=== PATIENT | female | born 1965 | race Caucasian/White ===

== ENCOUNTER → 2017-11-16 | Outpatient (CLI) | payer BC ==
[2017-11-16 08:40] LABS: Basophils % (A) 0 %; Eosinophils # (A) 0.3 k/uL (0-0.7); Eosinophils % (A) 4 %; HCT 43.9 % (34.0-46.0); HGB 14.4 gm/dL (11.4-16.0); Lymphocytes # (A) 1.8 k/uL (1.0-4.8); Lymphocytes % (A) 28 %; MCH 27.9 pg (25.0-35.0); MCHC 32.7 g/dL (31.0-37.0); MCV 85.2 fL (80.0-100.0); Mean Platelet Volume 6.9; Monocytes # (A) 0.5 k/uL (0-1.0); Monocytes % (A) 7 %; Neutrophils # (A) 3.7 k/uL (1.3-7.7); Neutrophils % (A) 58 %; Platelet Count 218 k/uL (150-450); RBC 5.15 m/uL (3.80-5.40); RDW 14.6 % (11.5-15.5); WBC 6.4 k/uL (3.8-10.6)
[2017-11-16 09:02] LABS: Albumin 3.9 g/dL (3.5-5.0); Calcium 9.5 mg/dL (8.4-10.2); Potassium 4.7 mmol/L (3.5-5.1); Total Bilirubin 0.5 mg/dL (0.2-1.3)
== END | disposition home or self-care (01) ==
LOC: LABWHC1 07:45
PROVIDERS: ATTEND Internal Medicine
DX: Z00.00 Encounter for general adult medical examination without abnormal findings (principal)
CPT/HCPCS: 36415; 80053; 80061; 84443; 85025

== ENCOUNTER 2018-05-26 13:21 | Inpatient (IN) | payer BC ==
[2018-05-26] MEDS ORDERED: SODIUM CHLORIDE 0.9% 1,000 ML IV STA (14:11)
[2018-05-26 14:30] LABS: Basophils % (A) 0 %; Eosinophils # (A) 0.2 k/uL (0-0.7); Eosinophils % (A) 2 %; HCT 45.6 % (34.0-46.0); HGB 15.2 gm/dL (11.4-16.0); Lymphocytes # (A) 1.3 k/uL (1.0-4.8); Lymphocytes % (A) 12 %; MCH 28.6 pg (25.0-35.0); MCHC 33.2 g/dL (31.0-37.0); MCV 85.9 fL (80.0-100.0); Mean Platelet Volume 7.1; Monocytes # (A) 0.6 k/uL (0-1.0); Monocytes % (A) 6 %; Neutrophils # (A) 8.5 k/uL (1.3-7.7); Neutrophils % (A) 79 %; Platelet Count 193 k/uL (150-450); RBC 5.31 m/uL (3.80-5.40); WBC 10.7 k/uL (3.8-10.6)
--- NOTE | 2018-05-26 14:38 | ED ---
General Adult HPI - General Chief complaint: Arrhythmia/Palpitations Stated complaint: Irregular Heart Rate Time Seen by Provider: 05/26/18 13:49 Source: patient, RN notes reviewed, old records reviewed Mode of arrival: ambulatory Limitations: no limitations - History of Present Illness Initial comments: Patient is a 52-year-old female who presents emergency department today with chief complaint of heart palpitations. Patient ports that she's had a history of A. fib. Patient states that she does take eliquis for this. Patient states she's been feeling a chest pressure and this arrhythmia for the past 6 days. She reports her had this happen for this long. Patient reports that she's had increased chest pressure and pain today. She does report feels like it makes her catch her breath. She does report history of stress and anxiety over the past week. - Related Data Home Medications Medication Instructions Recorded Confirmed Apixaban [Eliquis] 5 mg PO QAM 07/24/17 05/26/18 Losartan [Cozaar] 50 mg PO QAM 07/24/17 05/26/18 Diltiazem HCl [Cartia Xt] 120 mg PO DAILY 05/26/18 05/26/18 Magnesium 300 mg PO ONCE 05/26/18 05/26/18 Allergies Allergy/AdvReac Type Severity Reaction Status Date / Time No Known Allergies Allergy Verified 05/26/18 14:00 Review of Systems ROS Statement: Those systems with pertinent positive or pertinent negative responses have been documented in the HPI. ROS Other: All systems not noted in ROS Statement are negative. Past Medical History Past Medical History: Atrial Fibrillation, Hypertension, Sleep Apnea/CPAP/BIPAP Additional Past Medical History / Comment(s): HTN, overweight. History of Any Multi-Drug Resistant Organisms: None Reported Past Surgical History: Cholecystectomy, Hernia Repair, Hysterectomy, Uterine Ablation Additional Past Surgical History / Comment(s): UTERINE ABLATION Past Anesthesia/Blood Transfusion Reactions: No Reported Reaction Past Psychological History: Depression Smoking Status: Never smoker Past Alcohol Use History: Rare Past Drug Use History: None Reported - Past Family History Mother Family Medical History: AFIB Father Family Medical History: Cancer, CVA/TIA Additional Family Medical History / Comment(s): PROSTATE Brother(s) Family Medical History: No Reported History Son(s) Family Medical History: No Reported History General Exam - General Exam Comments Initial Comments: Anxious 52-year-old female. Limitations: no limitations General appearance: alert, in no apparent distress Head exam: Present: atraumatic, normocephalic, normal inspection Eye exam: Present: normal appearance, PERRL, EOMI. Absent: scleral icterus, conjunctival injection, periorbital swelling ENT exam: Present: normal exam, mucous membranes moist Neck exam: Present: normal inspection. Absent: tenderness, meningismus, lymphadenopathy Respiratory exam: Present: normal lung sounds bilaterally. Absent: respiratory distress, wheezes, rales, rhonchi, stridor Cardiovascular Exam: Present: regular rate, normal heart sounds. Absent: normal rhythm (Irregular, occasional PVCs.), systolic murmur, diastolic murmur, rubs, gallop, clicks GI/Abdominal exam: Present: soft, normal bowel sounds. Absent: distended, tenderness, guarding, rebound, rigid Extremities exam: Present: normal inspection, full ROM, normal capillary refill. Absent: tenderness, pedal edema, joint swelling, calf tenderness Back exam: Present: normal inspection Neurological exam: Present: alert, oriented X3, CN II-XII intact Psychiatric exam: Present: normal affect, normal mood Skin exam: Present: warm, dry, intact, normal color. Absent: rash Course Vital Signs 05/26/18 05/26/18 05/26/18 13:28 15:28 16:11 Temperature 98.2 F Pulse Rate 89 93 76 Respiratory 18 18 18 Rate Blood Pressure 145/87 164/83 155/87 O2 Sat by Pulse 95 95 95 Oximetry EKG Findings - EKG Comments: EKG Findings:: EKG performed at 1413 shows sinus rhythm with premature atrial compresses with apparent conduction. Possible left atrial enlargement. Anterior infarct age and turn. Abnormal EKG. Ventricular rate of 91 bpm. Pulse 136 most seconds. Stressors is 98 ms. QT QTc is 380/467 ms. Medical Decision Making - Medical Decision Making Patient is a 52-year-old female presents return today with chief complaint of chest pressure and pain worse today. She reports she's been having feelings of palpitations for the past week. Patient states that she has history of A. fib on L Meenakshi. At this time Patient continues to plan of a dull ache within her chest. EKG was reviewed. There is evidence of PACs. Patient ports these PACs continue to make her pain worse. Patient does appear somewhat anxious. Her cardiac enzymes are negative at this time. Chest x-ray was reviewed and negative for any acute process. The other lab work was reviewed and benign. Patient was given by mouth aspirin, will resume medications. Discussed case with Dr. Mora, whom discussed with Dr. Marie for admission. - Lab Data Result diagrams: 05/26/18 14:20 05/26/18 14:20 Lab Results 05/26/18 05/26/18 05/26/18 Range/Units 14:20 14:20 14:20 WBC 10.7 H (3.8-10.6) k/uL RBC 5.31 (3.80-5.40) m/uL Hgb 15.2 (11.4-16.0) gm/dL Hct 45.6 (34.0-46.0) % MCV 85.9 (80.0-100.0) fL MCH 28.6 (25.0-35.0) pg MCHC 33.2 (31.0-37.0) g/dL RDW 14.0 (11.5-15.5) % Plt Count 193 (150-450) k/uL Neutrophils % 79 % Lymphocytes % 12 % Monocytes % 6 % Eosinophils % 2 % Basophils % 0 % Neutrophils # 8.5 H (1.3-7.7) k/uL Lymphocytes # 1.3 (1.0-4.8) k/uL Monocytes # 0.6 (0-1.0) k/uL Eosinophils # 0.2 (0-0.7) k/uL Basophils # 0.0 (0-0.2) k/uL PT (9.0-12.0) sec INR (<1.2) APTT (22.0-30.0) sec Sodium 139 (137-145) mmol/L Potassium 4.7 (3.5-5.1) mmol/L Chloride 107 (98-107) mmol/L Carbon Dioxide 24 (22-30) mmol/L Anion Gap 8 mmol/L BUN 20 H (7-17) mg/dL Creatinine 0.93 (0.52-1.04) mg/dL Est GFR (CKD-EPI)AfAm 82 (>60 ml/min/1.73 sqM) Est GFR (CKD-EPI)NonAf 71 (>60 ml/min/1.73 sqM) Glucose 114 H (74-99) mg/dL Calcium 9.5 (8.4-10.2) mg/dL Magnesium 2.0 (1.6-2.3) mg/dL Total Bilirubin 0.8 (0.2-1.3) mg/dL AST 25 (14-36) U/L ALT 26 (9-52) U/L Alkaline Phosphatase 117 (38-126) U/L Total Creatine Kinase 23 L (30-135) U/L CK-MB (CK-2) 0.5 (0.0-2.4) ng/mL CK-MB (CK-2) Rel Index 2.2 Troponin I <0.012 (0.000-0.034) ng/mL Total Protein 7.1 (6.3-8.2) g/dL Albumin 4.2 (3.5-5.0) g/dL TSH 1.030 (0.465-4.680) mIU/L Urine Color Urine Appearance (Clear) Urine pH (5.0-8.0) Ur Specific [place] (1.001-1.035) Urine Protein (Negative) Urine Glucose (UA) (Negative) Urine Ketones (Negative) Urine Blood (Negative) Urine Nitrite (Negative) Urine Bilirubin (Negative) Urine Urobilinogen (<2.0) mg/dL Ur Leukocyte Esterase (Negative) Urine WBC (0-5) /hpf Ur Squamous Epith Cells (0-4) /hpf Urine Mucus (None) /hpf 05/26/18 05/26/18 Range/Units 15:00 15:00 WBC (3.8-10.6) k/uL RBC (3.80-5.40) m/uL Hgb (11.4-16.0) gm/dL Hct (34.0-46.0) % MCV (80.0-100.0) fL MCH (25.0-35.0) pg MCHC (31.0-37.0) g/dL RDW (11.5-15.5) % Plt Count (150-450) k/uL Neutrophils % % Lymphocytes % % Monocytes % % Eosinophils % % Basophils % % Neutrophils # (1.3-7.7) k/uL Lymphocytes # (1.0-4.8) k/uL Monocytes # (0-1.0) k/uL Eosinophils # (0-0.7) k/uL Basophils # (0-0.2) k/uL PT 10.3 (9.0-12.0) sec INR 1.0 (<1.2) APTT 28.9 (22.0-30.0) sec Sodium (137-145) mmol/L Potassium (3.5-5.1) mmol/L Chloride (98-107) mmol/L Carbon Dioxide (22-30) mmol/L Anion Gap mmol/L BUN (7-17) mg/dL Creatinine (0.52-1.04) mg/dL Est GFR (CKD-EPI)AfAm (>60 ml/min/1.73 sqM) Est GFR (CKD-EPI)NonAf (>60 ml/min/1.73 sqM) Glucose (74-99) mg/dL Calcium (8.4-10.2) mg/dL Magnesium (1.6-2.3) mg/dL Total Bilirubin (0.2-1.3) mg/dL AST (14-36) U/L ALT (9-52) U/L Alkaline Phosphatase (38-126) U/L Total Creatine Kinase (30-135) U/L CK-MB (CK-2) (0.0-2.4) ng/mL CK-MB (CK-2) Rel Index Troponin I (0.000-0.034) ng/mL Total Protein (6.3-8.2) g/dL Albumin (3.5-5.0) g/dL TSH (0.465-4.680) mIU/L Urine Color Yellow Urine Appearance Cloudy H (Clear) Urine pH 6.0 (5.0-8.0) Ur Specific [place] 1.021 (1.001-1.035) Urine Protein 1+ H (Negative) Urine Glucose (UA) Negative (Negative) Urine Ketones Trace H (Negative) Urine Blood Negative (Negative) Urine Nitrite Negative (Negative) Urine Bilirubin Negative (Negative) Urine Urobilinogen <2.0 (<2.0) mg/dL Ur Leukocyte Esterase Negative (Negative) Urine WBC 4 (0-5) /hpf Ur Squamous Epith Cells 17 H (0-4) /hpf Urine Mucus Occasional H (None) /hpf - Radiology Data Radiology results: report reviewed Chest x-ray was negative for any acute process. Disposition Clinical Impression: Chest pain, PAC (premature atrial contraction) Disposition: ADMITTED IP TO THIS HOSP Condition: Stable Is patient prescribed a controlled substance at d/c from ED?: No Referrals: Ulises Pérez MD [Primary Care Provider] - 1-2 days Time of Disposition: 17:11
[2018-05-26 14:43] LABS: Albumin 4.2 g/dL (3.5-5.0); Calcium 9.5 mg/dL (8.4-10.2); Creatine Kinase 23 U/L (30-135); Potassium 4.7 mmol/L (3.5-5.1); Total Bilirubin 0.8 mg/dL (0.2-1.3); Total Protein 7.1 g/dL (6.3-8.2)
[2018-05-26 14:45] LABS: Partial Thromboplastin Time 28.9 sec (22.0-30.0); Prothrombin Time 10.3 sec (9.0-12.0)
[2018-05-26 14:56] LABS: Creatine Kinase MB 0.5 ng/mL (0.0-2.4); Troponin I <0.012 ng/mL (0.000-0.034)
--- NOTE | 2018-05-26 14:58 | XR ---
EXAMINATION TYPE: XR chest 2V DATE OF EXAM: 05/26/2018 COMPARISON: 06/07/2014 HISTORY: Irregular heartbeat TECHNIQUE: Frontal and lateral views of the chest are obtained. FINDINGS: Heart and mediastinum are normal. Lungs are clear of consolidation. There is no pleural ef fusion. Costophrenic angles are clear. The thorax is intact. There are chest leads. IMPRESSION: No active cardiopulmonary disease. Normal heart. No change.
[2018-05-26 15:23] LABS: Appearance,Urine Cloudy (Clear); Bilirubin,Urine Negative (Negative); Blood,Urine Negative (Negative); Color,Urine Yellow; Glucose,Urine (UA) Negative (Negative); Ketones,Urine Trace (Negative); Leukocyte Esterase,Urine Negative (Negative); Mucus,Urine Occasional /hpf; Nitrite,Urine Negative (Negative); Protein,Urine 1+ (Negative); Specific Gravity,Urine 1.021 (1.001-1.035); Squamous Epithelial Cell,Urine 17 /hpf (0-4); Urobilinogen,Urine <2.0 mg/dL (<2.0); WBC,Urine 4 /hpf (0-5)
[2018-05-26] MEDS ORDERED: LORazepam 2 MG/ML INJ IV STA (16:05)
[2018-05-26] MEDS ORDERED: ASPIRIN 81 MG PO STA (16:14)
[2018-05-26] MEDS ORDERED: MORPHINE SULFATE 4 MG/ML SYRINGE IV PRN (17:12)
[2018-05-26] MEDS ORDERED: NITROGLYCERIN SL TABS 0.4 MG TAB SUBLINGUAL PRN (17:12)
[2018-05-26] MEDS ORDERED: MAGNESIUM OXIDE 400 MG TAB PO PRN (17:15)
[2018-05-26 18:14] VITALS: BMI 40.7
[2018-05-26 21:45] LABS: Creatine Kinase 23 U/L (30-135)
[2018-05-26 21:52] LABS: Creatine Kinase MB 0.6 ng/mL (0.0-2.4); Troponin I <0.012 ng/mL (0.000-0.034)
[2018-05-27 03:14] LABS: Cholesterol 174 mg/dL (<200); HDL Cholesterol 39 mg/dL (40-60); LDL Cholesterol,Calculated 111 mg/dL (0-99); Triglycerides 118 mg/dL (<150)
[2018-05-27 03:42] LABS: Creatine Kinase <20 U/L (30-135)
[2018-05-27 03:53] LABS: Creatine Kinase MB 0.4 ng/mL (0.0-2.4); Troponin I <0.012 ng/mL (0.000-0.034)
[2018-05-27] MEDS: DILTIAZEM CD 120 MG CAP.ER.24H PO SCH (08:22)
[2018-05-27] MEDS: ASPIRIN 325 MG TAB PO SCH (08:22)
[2018-05-27] MEDS: APIXABAN 5 MG TAB PO SCH (08:22)
[2018-05-27] MEDS: LOSARTAN 50 MG TAB PO SCH (08:22)
--- NOTE | 2018-05-27 12:03 | P.HPIM ---
History of Present Illness H&P Date: 05/27/18 Chief Complaint: Chest pain/palpitations This is a 52-year-old female with a past medical history of atrial fibrillation, hypertension, obstructive sleep apnea. Who presented yesterday afternoon to the emergency department complaining of palpitations for the last 6 days and today chest pressure. Patient states that the chest pressure and pain increased today. However she didn't feel any shortness of breath or diaphoresis at that time. Patient does report that she's had higher levels of stress and anxiety over the past week. Patient does take elquist on a daily basis and Cardizem to help control the A. fib. At this time patient is resting comfortably in bed without having any further episodes of palpitations or chest discomfort. She denies any nausea or vomiting or difficulty breathing. Review of Systems Constitutional: Denies chills, Denies fever Eyes: denies blurred vision, denies pain Ears, nose, mouth and throat: Denies headache, Denies sore throat Cardiovascular: Denies chest pain, Denies irregular heart beat, Denies palpitations, Denies rapid heart beat, Denies shortness of breath Respiratory: Denies cough Gastrointestinal: Denies abdominal pain, Denies constipation, Denies diarrhea, Denies nausea, Denies vomiting Genitourinary: Denies dysuria, Denies hematuria Musculoskeletal: Denies myalgias Integumentary: Denies pruritus, Denies rash Neurological: Denies numbness, Denies weakness Psychiatric: Denies anxiety, Denies depression Endocrine: Denies fatigue, Denies weight change Past Medical History Past Medical History: Atrial Fibrillation, Hypertension, Sleep Apnea/CPAP/BIPAP Additional Past Medical History / Comment(s): pt wears bipap HS History of Any Multi-Drug Resistant Organisms: None Reported Past Surgical History: Cholecystectomy, Hernia Repair, Hysterectomy, Uterine Ablation Additional Past Surgical History / Comment(s): UTERINE ABLATION Past Anesthesia/Blood Transfusion Reactions: No Reported Reaction Additional Past Anesthesia/Blood Transfusion Reaction / Comment(s): pt does not recieve blood transfusion Past Psychological History: Depression Smoking Status: Never smoker Past Alcohol Use History: Rare Past Drug Use History: None Reported - Past Family History Mother Family Medical History: Deep Vein Thrombosis (DVT) Father Family Medical History: AFIB, Cancer Additional Family Medical History / Comment(s): PROSTATE Brother(s) Family Medical History: No Reported History Son(s) Family Medical History: No Reported History Medications and Allergies Home Medications Medication Instructions Recorded Confirmed Type Apixaban [Eliquis] 5 mg PO QAM 07/24/17 05/26/18 History Losartan [Cozaar] 50 mg PO QAM 07/24/17 05/26/18 History Diltiazem HCl [Cartia Xt] 120 mg PO DAILY 05/26/18 05/26/18 History Magnesium 200 - 400 mg PO ONCE 05/26/18 05/26/18 History Allergies Allergy/AdvReac Type Severity Reaction Status Date / Time No Known Allergies Allergy Verified 05/26/18 14:00 Physical Exam Vitals: Vital Signs Temp Pulse Pulse Pulse Resp BP BP 05/27/18 07:57 98.0 F 78 18 156/88 05/27/18 04:18 97.8 F 83 15 145/88 05/27/18 03:29 14 05/26/18 23:22 14 05/26/18 20:00 14 05/26/18 19:09 98.1 F 80 14 154/84 05/26/18 18:03 97.8 F 87 16 152/88 05/26/18 17:37 98.3 F 89 18 153/94 05/26/18 16:11 76 18 155/87 05/26/18 15:28 93 18 164/83 05/26/18 13:28 98.2 F 89 18 145/87 Pulse Ox 05/27/18 07:57 93 L 05/27/18 04:18 97 05/27/18 03:29 05/26/18 23:22 05/26/18 20:00 05/26/18 19:09 98 05/26/18 18:03 94 L 05/26/18 17:37 99 05/26/18 16:11 95 05/26/18 15:28 95 05/26/18 13:28 95 Intake and Output 05/26/18 05/27/18 05/27/18 22:59 06:59 14:59 Other: Voiding Method Toilet Toilet Toilet # Voids 2 1 1 Weight 132.9 kg - Constitutional General appearance: cooperative, no acute distress, obese - EENT Eyes: anicteric sclerae, EOMI, PERRLA - Neck Neck: no lymphadenopathy, normal ROM - Respiratory Respiratory: bilateral: CTA, negative: diminished, dullness, rales, rhonchi, wheezing, prolonged expiration, prolonged inspiration, other - Cardiovascular Rhythm: regular Heart sounds: normal: S1, S2 Abnormal Heart Sounds: no systolic murmur, no diastolic murmur, no rub, no S3 Gallop, no S4 Gallop, no click, no other - Gastrointestinal General gastrointestinal: normal bowel sounds, no organomegaly, soft, no tenderness - Integumentary Integumentary: normal turgor - Neurologic Neurologic: CNII-XII intact - Musculoskeletal Musculoskeletal: gait normal, strength equal bilaterally - Psychiatric Psychiatric: A&O x's 3, appropriate affect, intact judgment & insight Results CBC & Chem 7: 05/26/18 14:20 05/26/18 14:20 Labs: Abnormal Lab Results - Last 24 Hours (Table) 05/26/18 05/26/18 05/26/18 Range/Units 14:20 14:20 14:20 WBC 10.7 H (3.8-10.6) k/uL Neutrophils # 8.5 H (1.3-7.7) k/uL BUN 20 H (7-17) mg/dL Glucose 114 H (74-99) mg/dL Total Creatine Kinase 23 L (30-135) U/L LDL Cholesterol, Calc (0-99) mg/dL HDL Cholesterol (40-60) mg/dL Urine Appearance (Clear) Urine Protein (Negative) Urine Ketones (Negative) Ur Squamous Epith Cells (0-4) /hpf Urine Mucus (None) /hpf 05/26/18 05/26/18 05/27/18 Range/Units 15:00 20:32 02:48 WBC (3.8-10.6) k/uL Neutrophils # (1.3-7.7) k/uL BUN (7-17) mg/dL Glucose (74-99) mg/dL Total Creatine Kinase 23 L <20 L (30-135) U/L LDL Cholesterol, Calc (0-99) mg/dL HDL Cholesterol (40-60) mg/dL Urine Appearance Cloudy H (Clear) Urine Protein 1+ H (Negative) Urine Ketones Trace H (Negative) Ur Squamous Epith Cells 17 H (0-4) /hpf Urine Mucus Occasional H (None) /hpf 05/27/18 Range/Units 02:48 WBC (3.8-10.6) k/uL Neutrophils # (1.3-7.7) k/uL BUN (7-17) mg/dL Glucose (74-99) mg/dL Total Creatine Kinase (30-135) U/L LDL Cholesterol, Calc 111 H (0-99) mg/dL HDL Cholesterol 39 L (40-60) mg/dL Urine Appearance (Clear) Urine Protein (Negative) Urine Ketones (Negative) Ur Squamous Epith Cells (0-4) /hpf Urine Mucus (None) /hpf Thrombosis Risk Factor Assmnt - Choose All That Apply Any of the Below Risk Factors Present?: Yes Each Factor Represents 1 point: Obesity (BMI >25) Other Risk Factors: Yes Each Risk Factor Represents 3 Points: Family history of DVT/PE Thrombosis Risk Factor Assessment Total Risk Factor Score: 4 Thrombosis Risk Factor Assessment Level: Moderate Risk Assessment and Plan Plan: 1. Chest pain. Consult cardiology, troponins negative, EKG shows sinus rhythm with PACs. 2. palpitations. Continue losartan 50 mg by mouth continue diltiazem 120 mg by mouth daily 3. Atrial fibrillation. Continue eliquis 5 mg daily, continue diltiazem 120 mg daily 4. Hypertension. Continue losartan 50 mg by mouth 5. Obstructive sleep apnea. Continue CPAP machine. 6. DVT prophylaxis. Ambulation Discharge plan: Patient is able to go home if cleared by cardiology. Impression and plan of care have been directed as dictated by the signing physician. Dorothy Rosas nurse practitioner acting as scribe for signing physician.
--- NOTE | 2018-05-27 12:06 | P.DS ---
Providers Date of admission: 05/26/18 16:31 Attending physician: Kenroy Marie Consults: 05/26/18 16:30 Consult Physician Routine Consulting Provider: Shankar Pickens Consult Reason/Comments: palpitations, chest pain Do you want consulting provider notified?: Yes [facility] Course: This is a 52-year-old female with a past medical history of atrial fibrillation, hypertension, obstructive sleep apnea. Who presented yesterday afternoon to the emergency department complaining of palpitations for the last 6 days and today chest pressure. Patient states that the chest pressure and pain increased today. However she didn't feel any shortness of breath or diaphoresis at that time. Patient does report that she's had higher levels of stress and anxiety over the past week. Patient does take elquist on a daily basis and Cardizem to help control the A. fib. At this time patient is resting comfortably in bed without having any further episodes of palpitations or chest discomfort. She denies any nausea or vomiting or difficulty breathing. 1. Chest pain. Consult cardiology, troponins negative, EKG shows sinus rhythm with PACs. 2. palpitations. Continue losartan 50 mg by mouth continue diltiazem 120 mg by mouth daily 3. Atrial fibrillation. Continue eliquis 5 mg daily, continue diltiazem 120 mg daily 4. Hypertension. Continue losartan 50 mg by mouth 5. Obstructive sleep apnea. Continue CPAP machine. 6. DVT prophylaxis. Ambulation Disposition: Home with self-care Impression and plan of care have been directed as dictated by the signing physician. Dorothy Rosas nurse practitioner acting as scribe for signing physician. Patient Condition at Discharge: Stable Plan - Discharge Summary New Discharge Prescriptions: Continue Losartan [Cozaar] 50 mg PO QAM Apixaban [Eliquis] 5 mg PO QAM Diltiazem HCl [Cartia Xt] 120 mg PO DAILY Magnesium 200 - 400 mg PO ONCE Discharge Medication List Apixaban [Eliquis] 5 mg PO QAM 07/24/17 [History] Losartan [Cozaar] 50 mg PO QAM 07/24/17 [History] Diltiazem HCl [Cartia Xt] 120 mg PO DAILY 05/26/18 [History] Magnesium 200 - 400 mg PO ONCE 05/26/18 [History] Follow up Appointment(s)/Referral(s): Tremaine Johnston MD [STAFF PHYSICIAN] - As Needed Ulises Pérez MD [Primary Care Provider] - 1-2 days
--- NOTE | 2018-05-27 12:46 | P.CRDCN ---
History of Present Illness History of present illness: This is Dr. Johnston dictating a consult on this patient The patient was interviewed and examined by me IMPRESSION / ASSESSMENT: History of palpitations and documented PVCs infrequent. Patient became anxious about the fluttering in the chest that was ongoing for the last 6 days We have not documented in atrial fibrillation She has a history of paroxysmal atrial fibrillation at least 2 episodes requiring hospitalization A ABDULAZIZ VASC score is at least 2, female gender, hypertension PLAN: Unfortunately long-term and granulation is indicated with this ABDULAZIZ VASC score She is 52 years of age Weight reduction Continue with sleep apnea management with Dr. Moralez Minimize alcohol use She may have a couple coffee a day Home blood pressure monitoring and follow with a regular internet project manager I would recommend testing her with flecainide followed by using flecainide only on a when necessary basis, pill in the pocket technique. She may stay in the hospital for this and then we can use flecainide only on a when necessary basis all this will be done as an outpatient either here [place] or with her primary internet project manager/account assistant at [place]. Patient does not want to stay in the hospital but she is also equally worried about using flecainide. Apparently she was given sotalol the past and I have recommended that she should not use sotalol and if her cardiac structure and function was normal flecainide would be a better choice. She may go home after the 2-D echo and Doppler study HPI patient presenting with palpitations. She has a history of atrial fibrillation and takes ELIQUIS for this bending of palpitations and chest pressure for the last 6 days. She also has a history of hypertension and is on losartan. For atrial fibrillation she takes ELIQUIS and Cartia She has a history of atrial fibrillation, hypertension, obstructive sleep apnea Twelve-lead ECG shows occasional PVCs but is normal ECG cardiac enzymes are normal No syncope She's had 2 episodes of atrial fibrillation requiring hospitalization ROS: No fever chills or rigors, no cough, phlegm or expectoration, no nausea, vomiting or diarrhea, no hematuria, dysuria, no musculoskeletal complaints, no strokes or seizures, no skin lesions. EXAMINATION Blood pressure is elevated at home she says her blood pressures usually in the 130s by 80s Heart rates are normal Breath sounds are normal no rhonchi no crackles Heart sounds S1 and S2 normal no murmurs or gallops or rub Abdomen soft No JVD REVIEW OF LABS, ECG Chest x-ray is within normal limits Twelve-lead ECG shows sinus rhythm normal [place] narrow QRS normal ST segments occasional outflow tract PVCs with a left bundle branch block morphology Poor R-wave progression White count 10.7 thousand hemoglobin 15.2 him a CMP normal 3 cardiac enzymes are normal LDL 111, HDL 39, total cholesterol 174, triglycerides 118 BUN 20 and creatinine 0.93 TSH 1.0, normal Past Medical History Past Medical History: Atrial Fibrillation, Hypertension, Sleep Apnea/CPAP/BIPAP Additional Past Medical History / Comment(s): pt wears bipap HS History of Any Multi-Drug Resistant Organisms: None Reported Past Surgical History: Cholecystectomy, Hernia Repair, Hysterectomy, Uterine Ablation Additional Past Surgical History / Comment(s): UTERINE ABLATION Past Anesthesia/Blood Transfusion Reactions: No Reported Reaction Additional Past Anesthesia/Blood Transfusion Reaction / Comment(s): pt does not recieve blood transfusion Past Psychological History: Depression Smoking Status: Never smoker Past Alcohol Use History: Rare Past Drug Use History: None Reported - Past Family History Mother Family Medical History: Deep Vein Thrombosis (DVT) Father Family Medical History: AFIB, Cancer Additional Family Medical History / Comment(s): PROSTATE Brother(s) Family Medical History: No Reported History Son(s) Family Medical History: No Reported History Medications and Allergies Home Medications Medication Instructions Recorded Confirmed Type Apixaban [Eliquis] 5 mg PO QAM 07/24/17 05/26/18 History Losartan [Cozaar] 50 mg PO QAM 07/24/17 05/26/18 History Diltiazem HCl [Cartia Xt] 120 mg PO DAILY 05/26/18 05/26/18 History Magnesium 200 - 400 mg PO ONCE 05/26/18 05/26/18 History Allergies Allergy/AdvReac Type Severity Reaction Status Date / Time No Known Allergies Allergy Verified 05/26/18 14:00 Physical Exam Vitals: Vital Signs Temp Pulse Pulse Pulse Resp BP BP 05/27/18 07:57 98.0 F 78 93 H 156/88 05/27/18 04:18 97.8 F 83 15 145/88 05/27/18 03:29 14 05/26/18 23:22 14 05/26/18 20:00 14 05/26/18 19:09 98.1 F 80 14 154/84 05/26/18 18:03 97.8 F 87 16 152/88 05/26/18 17:37 98.3 F 89 18 153/94 05/26/18 16:11 76 18 155/87 05/26/18 15:28 93 18 164/83 05/26/18 13:28 98.2 F 89 18 145/87 Pulse Ox 05/27/18 07:57 93 L 05/27/18 04:18 97 05/27/18 03:29 05/26/18 23:22 05/26/18 20:00 05/26/18 19:09 98 05/26/18 18:03 94 L 05/26/18 17:37 99 05/26/18 16:11 95 05/26/18 15:28 95 05/26/18 13:28 95 Intake and Output 05/26/18 05/27/18 05/27/18 22:59 06:59 14:59 Other: Voiding Method Toilet Toilet # Voids 2 1 Weight 132.9 kg Results 05/26/18 14:20 05/26/18 14:20 Cardiac Enzymes 05/26/18 05/26/18 05/26/18 Range/Units 14:20 14:20 20:32 AST 25 (14-36) U/L CK-MB (CK-2) 0.5 0.6 (0.0-2.4) ng/mL Troponin I <0.012 <0.012 (0.000-0.034) ng/mL 05/27/18 Range/Units 02:48 AST (14-36) U/L CK-MB (CK-2) 0.4 (0.0-2.4) ng/mL Troponin I <0.012 (0.000-0.034) ng/mL Coagulation 05/26/18 Range/Units 15:00 PT 10.3 (9.0-12.0) sec APTT 28.9 (22.0-30.0) sec Lipids 05/27/18 Range/Units 02:48 Triglycerides 118 (<150) mg/dL Cholesterol 174 (<200) mg/dL HDL Cholesterol 39 L (40-60) mg/dL CBC 05/26/18 Range/Units 14:20 WBC 10.7 H (3.8-10.6) k/uL RBC 5.31 (3.80-5.40) m/uL Hgb 15.2 (11.4-16.0) gm/dL Hct 45.6 (34.0-46.0) % Plt Count 193 (150-450) k/uL Comprehensive Metabolic Panel 05/26/18 Range/Units 14:20 Sodium 139 (137-145) mmol/L Potassium 4.7 (3.5-5.1) mmol/L Chloride 107 (98-107) mmol/L Carbon Dioxide 24 (22-30) mmol/L BUN 20 H (7-17) mg/dL Creatinine 0.93 (0.52-1.04) mg/dL Glucose 114 H (74-99) mg/dL Calcium 9.5 (8.4-10.2) mg/dL AST 25 (14-36) U/L ALT 26 (9-52) U/L Alkaline Phosphatase 117 (38-126) U/L Total Protein 7.1 (6.3-8.2) g/dL Albumin 4.2 (3.5-5.0) g/dL Current Medications Generic Name Dose Route Start Last Admin Trade Name Freq PRN Reason Stop Dose Admin Apixaban 5 mg 05/27/18 09:00 Eliquis PO QAM [facility] Aspirin 325 mg 05/27/18 09:00 Aspirin PO DAILY [facility] Diltiazem HCl 120 mg 05/27/18 09:00 Cardizem Cd PO DAILY [facility] Losartan Potassium 50 mg 05/27/18 09:00 Cozaar PO QAM [facility] Magnesium Oxide 200 - 400 mg 05/26/18 17:15 Mag-Ox PO DAILY PRN ANTACID/INSOMNIA Morphine Sulfate 4 mg 05/26/18 17:12 Morphine Sulfate (Inj) IV Q5M PRN Chest Pain Nitroglycerin 0.4 mg 05/26/18 17:12 Nitrostat SUBLINGUAL Q5M PRN Chest Pain Intake and Output 05/26/18 05/27/18 05/27/18 22:59 06:59 14:59 Other: Voiding Method Toilet Toilet # Voids 2 1 Weight 132.9 kg 05/26/18 14:20 05/26/18 14:20
[2018-05-27] MEDS: FLECAINIDE 50 MG TAB PO SCH (16:10)
--- NOTE | 2018-05-27 17:00 | ECHOF ---
Referral Reason:palpitations, chest pain MEASUREMENTS -------- HEIGHT: 170.2 cm WEIGHT: 132.4 kg BP: 174/97 IVSd: 1.2 cm (0.6 - 1.1) LVIDd: 5.3 cm (3.9 - 5.3) LVPWd: 1.3 cm (0.6 - 1.1) IVSs: 1.7 cm LVIDs: 3.7 cm LVPWs: 1.7 cm RVIDd: 3.2 cm (< 3.3) LAESV Index (A-L): 31.14 ml/m Ao Diam: 2.6 cm (2.0 - 3.7) LA Diam: 4.9 cm (2.7 - 3.8) AV Cusp: 2.0 cm (1.5 - 2.6) EPSS: 0.7 cm MV E Maury: 1.30 m/s MV DecT: 298 ms MV A Maury: 1.55 m/s MV E/A Ratio: 0.83 RAP: 5.00 mmHg RVSP: 14.98 mmHg MV EF SLOPE: 77.98 mm/s (70 - 150) MV EXCURSION: 1.53 cm (> 18.000) FINDINGS -------- Sinus rhythm. This was a technically adequate study. The left ventricular size is normal. There is mild concentric left ventricular hypertrophy. Overa ll left ventricular systolic function is normal with, an EF between 55 - 60 %. The right ventricle is normal in size and function. Normal LA size by volume 22+/-6 ml/m2. The right atrium is normal in size. There is mild aortic valve sclerosis. There is no evidence of aortic regurgitation. There is no e vidence of aortic stenosis. The mitral valve leaflets are mildly thickened. There is trace to mild mitral regurgitation. Trace tricuspid regurgitation present. Right ventricular systolic pressure is normal at < 35 mmHg. There is no evidence of pulmonary hypertension. Trace/mild (physiologic) pulmonic regurgitation. The aortic root size is normal. Normal inferior vena cava with normal inspiratory collapse consistent with estimated right atrial pre ssure of 5 mmHg. There is no pericardial effusion. CONCLUSIONS -------- 1. Sinus rhythm. 2. This was a technically adequate study. 3. The left ventricular size is normal. 4. There is mild concentric left ventricular hypertrophy. 5. Overall left ventricular systolic function is normal with, an EF between 55 - 60 %. 6. Normal LA size by volume 22+/-6 ml/m2. 7. There is mild aortic valve sclerosis. 8. The mitral valve leaflets are mildly thickened. 9. There is trace to mild mitral regurgitation. 10. Trace tricuspid regurgitation present. 11. Right ventricular systolic pressure is normal at < 35 mmHg. 12. There is no evidence of pulmonary hypertension. 13. Trace/mild (physiologic) pulmonic regurgitation. 14. The aortic root size is normal. 15. There is no pericardial effusion. STUDIO ARTIST: Rakan Miller RDCS
[2018-05-27] MEDS: LORazepam 0.5 MG TAB PO SCH (21:23)
[2018-05-28] MEDS: FLECAINIDE 50 MG TAB PO SCH ×5 (00:03→19:53)
[2018-05-28] MEDS: DILTIAZEM CD 120 MG CAP.ER.24H PO SCH (09:05)
[2018-05-28] MEDS: ASPIRIN 325 MG TAB PO SCH (09:05)
[2018-05-28] MEDS: APIXABAN 5 MG TAB PO SCH (09:05)
[2018-05-28] MEDS: LOSARTAN 50 MG TAB PO SCH (09:05)
--- NOTE | 2018-05-28 12:30 | P.PN ---
Subjective Progress Note Date: 05/28/18 This is a 52-year-old female with a past medical history of atrial fibrillation, hypertension, obstructive sleep apnea. Who presented yesterday afternoon to the emergency department complaining of palpitations for the last 6 days and today chest pressure. Patient states that the chest pressure and pain increased today. However she didn't feel any shortness of breath or diaphoresis at that time. Patient does report that she's had higher levels of stress and anxiety over the past week. Patient does take elquist on a daily basis and Cardizem to help control the A. fib. At this time patient is resting comfortably in bed without having any further episodes of palpitations or chest discomfort. She denies any nausea or vomiting or difficulty breathing. 05/28: Patient is entering the room without any difficulties. She is inpatient to start antiarrhythmic treatment. Patient is being seen by cardiology. She denies any chest pain or palpitations at this time. She had started on flecainide yesterday and is tolerating well. Patient will be having a stress test done on Monday with possible discharge at that time. Patient denies any nausea or vomiting. Review Of Systems: Constitutional: No fever, no chills, no night sweats. No weight change. No weakness, fatigue or lethargy. No daytime sleepiness. EENT: No headache. No blurred vision or double vision, no loss of vision. No loss of Hearing, no ringing in the ears, no dizziness. No nasal drainage or congestion. No epistaxis. No sore throat. Lungs: No shortness of breath, cough, no sputum production. No wheezing. Cardiovascular: No chest pain, no lower extremity edema. No palpitations. No paroxysmal nocturnal dyspnea. No orthopnea. No lightheadedness or dizziness. No syncopal episodes. Abdominal: no abdominal discomfort. No nausea, vomiting. no diarrhea. No constipation. No bloody or tarry stools. improved loss of appetite. Genitourinary: No dysuria, increased frequency, urgency. No urinary retention. Musculoskeletal: No myalgias. No muscle weakness, no gait dysfunction, no frequent falls. No back pain. No neck pain. Integumentary: No wounds, no lesions. No rash or pruritus. No unusual bruising. No change in hair or nails. Neurologic: No aphasia. No facial droop. No change in mentation. No head injury. No headache. No paralysis. No paresthesia. Psychiatric: No depression. No anxiety. No mood swings. Endocrine: No abnormal blood sugars. No weight change. No excessive sweating or thirst. Objective - Vital Signs Vital signs: Vital Signs Temp 98.0 F 05/28/18 04:00 Pulse 80 05/28/18 04:00 Resp 16 05/28/18 04:00 BP 143/82 05/28/18 04:00 Pulse Ox 96 05/28/18 04:00 Intake & Output 05/27/18 05/28/18 05/28/18 18:59 06:59 18:59 Intake Total 440 480 240 Balance 440 480 240 Weight 131.1 kg 103.5 kg Intake: Oral 440 480 240 Other: Voiding Method Toilet Toilet # Voids 1 2 - Exam Gen: This is a 52-year-old pleasant female, in no acute distress, ambulatory HEENT: Head is atraumatic, normocephalic. Pupils equal, round. Sclerae is anicteric. NECK: Supple. No JVD. No lymphadenopathy. No thyromegaly. LUNGS: Clear to auscultation. No wheezes or rhonchi. No intercostal retractions. HEART: Regular rate and rhythm. No murmur. ABDOMEN: Soft. Bowel sounds are present. No masses. No tenderness. EXTREMITIES: No pedal edema. No calf tenderness. NEUROLOGICAL: Patient is awake, alert and oriented x3. Cranial nerves 2 through 12 are grossly intact. - Labs CBC & Chem 7: 05/26/18 14:20 05/26/18 14:20 Assessment and Plan Plan: 1. Chest pain. Consult cardiology, troponins negative, EKG shows sinus rhythm with PACs. Possible stress test on Monday. 2. palpitations. Continue losartan 50 mg by mouth continue diltiazem 120 mg by mouth daily 3. Atrial fibrillation. Continue eliquis 5 mg daily, continue diltiazem 120 mg daily. Patient is started on flecainide. 4. Hypertension. Continue losartan 50 mg by mouth 5. Obstructive sleep apnea. Continue CPAP machine. 6. DVT prophylaxis. Ambulation Discharge plan: Home possibly Monday. Impression and plan of care have been directed as dictated by the signing physician. Dorothy Rosas nurse practitioner acting as scribe for signing physician.
--- NOTE | 2018-05-28 12:45 | P.PN ---
Subjective Patient is doing well. No dizziness lightheadedness no palpitations No EKG changes no telemetry changes Blood pressure 160/92, 144/97 and 143/82 mmHg Normal heart sounds normal S1 normal S2 Normal breath sounds no rhonchi no crackles Afebrile Heart rates are normal Impression Hypertension essential Paroxysmal atrial fibrillation PVCs Suggest Increase the dose of flecainide today to 100 mg twice daily, continue telemetry monitoring and on Monday an exercise stress echo on flecainide Thereafter when the pocket technique the use of flecainide, either 100 or 200 mg on an as-needed basis. Watch blood pressure on current doses of medications and I may increase the dose of losartan, tomorrow Objective - Vital Signs Vital signs: Vital Signs Temp 97.6 F 05/28/18 12:20 Pulse 79 05/28/18 12:20 Resp 17 05/28/18 12:20 BP 160/92 05/28/18 12:20 Pulse Ox 97 05/28/18 12:20 Intake & Output 05/27/18 05/28/18 05/28/18 18:59 06:59 18:59 Intake Total 440 480 240 Balance 440 480 240 Weight 131.1 kg 103.5 kg Intake: Oral 440 480 240 Other: Voiding Method Toilet Toilet # Voids 1 2 1 - Labs CBC & Chem 7: 05/26/18 14:20 05/26/18 14:20
[2018-05-28] MEDS: LORazepam 0.5 MG TAB PO SCH (19:53)
[2018-05-29] MEDS: DILTIAZEM CD 120 MG CAP.ER.24H PO SCH (08:09)
[2018-05-29] MEDS: FLECAINIDE 50 MG TAB PO SCH ×2 (08:09→20:31)
[2018-05-29] MEDS: LOSARTAN 50 MG TAB PO SCH (08:10)
[2018-05-29] MEDS: APIXABAN 5 MG TAB PO SCH (08:10)
[2018-05-29] MEDS: ASPIRIN 81 MG PO SCH (08:10)
--- NOTE | 2018-05-29 11:47 | P.PN ---
Subjective Progress Note Date: 05/29/18 This is a 52-year-old female with a past medical history of atrial fibrillation, hypertension, obstructive sleep apnea. Who presented yesterday afternoon to the emergency department complaining of palpitations for the last 6 days and today chest pressure. Patient states that the chest pressure and pain increased today. However she didn't feel any shortness of breath or diaphoresis at that time. Patient does report that she's had higher levels of stress and anxiety over the past week. Patient does take elquist on a daily basis and Cardizem to help control the A. fib. At this time patient is resting comfortably in bed without having any further episodes of palpitations or chest discomfort. She denies any nausea or vomiting or difficulty breathing. 05/28: Patient is entering the room without any difficulties. She is inpatient to start antiarrhythmic treatment. Patient is being seen by cardiology. She denies any chest pain or palpitations at this time. She had started on flecainide yesterday and is tolerating well. Patient will be having a stress test done on Monday with possible discharge at that time. Patient denies any nausea or vomiting. 05/29/18: Patient is sitting up in chair with family at the bedside. Patient has a maturing room without any difficulties. Patient did have some palpitations in the evening and some this morning however after her last dose of lacunae in the palpitations seem to have subsided. Patient is tolerating flecainide well without any difficulties. Patient did have some issues with constipation however she had a bowel movement today and feels much better. He is scheduled for a stress test tomorrow with possible discharge afterwards. Review Of Systems: Constitutional: No fever, no chills, no night sweats. No weight change. No weakness, fatigue or lethargy. No daytime sleepiness. EENT: No headache. No blurred vision or double vision, no loss of vision. No loss of Hearing, no ringing in the ears, no dizziness. No nasal drainage or congestion. No epistaxis. No sore throat. Lungs: No shortness of breath, cough, no sputum production. No wheezing. Cardiovascular: Reports palpitations, No chest pain, no lower extremity edema. No palpitations. No paroxysmal nocturnal dyspnea. No orthopnea. No lightheadedness or dizziness. No syncopal episodes. Abdominal: no abdominal discomfort. No nausea, vomiting. no diarrhea. No constipation. No bloody or tarry stools. improved loss of appetite. Genitourinary: No dysuria, increased frequency, urgency. No urinary retention. Musculoskeletal: No myalgias. No muscle weakness, no gait dysfunction, no frequent falls. No back pain. No neck pain. Integumentary: No wounds, no lesions. No rash or pruritus. No unusual bruising. No change in hair or nails. Neurologic: No aphasia. No facial droop. No change in mentation. No head injury. No headache. No paralysis. No paresthesia. Psychiatric: No depression. No anxiety. No mood swings. Endocrine: No abnormal blood sugars. No weight change. No excessive sweating or thirst. Objective - Vital Signs Vital signs: Vital Signs Temp 97.0 F L 05/29/18 11:38 Pulse 80 05/29/18 11:38 Resp 18 05/29/18 11:38 BP 142/94 05/29/18 11:38 Pulse Ox 96 05/29/18 11:38 Intake & Output 05/28/18 05/29/18 05/29/18 18:59 06:59 18:59 Intake Total 720 40 240 Balance 720 40 240 Intake: IV 40 Invasive Line 2 40 Oral 720 240 Other: Voiding Method Toilet # Voids 1 2 1 - Exam Gen: This is a 52-year-old pleasant female, in no acute distress, ambulatory HEENT: Head is atraumatic, normocephalic. Pupils equal, round. Sclerae is anicteric. NECK: Supple. No JVD. No lymphadenopathy. No thyromegaly. LUNGS: Clear to auscultation. No wheezes or rhonchi. No intercostal retractions. HEART: Regular rate and rhythm. No murmur. ABDOMEN: Soft. Bowel sounds are present. No masses. No tenderness. EXTREMITIES: No pedal edema. No calf tenderness. NEUROLOGICAL: Patient is awake, alert and oriented x3. Cranial nerves 2 through 12 are grossly intact. - Labs CBC & Chem 7: 05/26/18 14:20 05/26/18 14:20 Assessment and Plan Plan: 1. Chest pain. Cardiology consult appreciated, troponins negative, EKG shows sinus rhythm with PACs. stress test on Monday. 2. palpitations. Continue losartan 50 mg by mouth continue diltiazem 120 mg by mouth daily 3. Atrial fibrillation. Continue eliquis 5 mg daily, continue diltiazem 120 mg daily. Continue flecainide. 4. Hypertension. Continue losartan 50 mg by mouth 5. Obstructive sleep apnea. Continue CPAP machine. 6. DVT prophylaxis. Ambulation Discharge plan: Home possibly Monday. Impression and plan of care have been directed as dictated by the signing physician. Dorothy Rosas nurse practitioner acting as scribe for signing physician.
--- NOTE | 2018-05-29 15:14 | P.PN ---
Subjective Patient is doing well. She has no more palpitations. Tolerating flecainide 100 mg twice daily. Blood pressure is elevated consistently Home blood pressures is better according to the patient No chest pain no undue shortness of breath no dizziness lightheadedness Blood pressure 142/94 mmHg respirations normal pulse rate in the 80s afebrile Breath sounds are clear no rhonchi no crackles Heart sounds S1 and S2 are normal no murmurs or gallops or rub Breath sounds are clear line abdomen soft nontender impression Paroxysmal atrial fibrillation, symptomatic Frequent PVCs Preserved LV systolic function Hypertension Suggest Continue flecainide 100 mg twice daily. She should get her dose at 6 AM in the morning. Tomorrow and exercise discussed with performed on flecainide Cardizem will be on hold tomorrow and will be restarted after her stress test If the stress test is normal on flecainide then we will start flecainide and continue losartan and artisan and she will use flecainide 100 mg on a when necessary basis only for atrial fibrillation that lasts for more than 20 minutes Objective - Vital Signs Vital signs: Vital Signs Temp 97.0 F L 05/29/18 11:38 Pulse 80 05/29/18 11:38 Resp 18 05/29/18 11:38 BP 142/94 05/29/18 11:38 Pulse Ox 96 05/29/18 11:38 Intake & Output 05/28/18 05/29/18 05/29/18 18:59 06:59 18:59 Intake Total 720 40 480 Balance 720 40 480 Intake: IV 40 Invasive Line 2 40 Oral 720 480 Other: Voiding Method Toilet # Voids 1 2 1 - Labs CBC & Chem 7: 05/26/18 14:20 05/26/18 14:20
[2018-05-29] MEDS: LORazepam 0.5 MG TAB PO SCH (20:31)
[2018-05-30] MEDS: FLECAINIDE 50 MG TAB PO SCH (05:55)
[2018-05-30 07:20] LABS: Basophils # (A) 0.1 k/uL (0-0.2); Basophils % (A) 1 %; Eosinophils # (A) 0.4 k/uL (0-0.7); Eosinophils % (A) 4 %; HGB 14.5 gm/dL (11.4-16.0); Lymphocytes % (A) 22 %; MCH 27.9 pg (25.0-35.0); MCHC 31.6 g/dL (31.0-37.0); MCV 88.3 fL (80.0-100.0); Monocytes # (A) 0.5 k/uL (0-1.0); Monocytes % (A) 6 %; Neutrophils # (A) 5.9 k/uL (1.3-7.7); Neutrophils % (A) 65 %; Platelet Count 213 k/uL (150-450); RBC 5.21 m/uL (3.80-5.40); WBC 9.1 k/uL (3.8-10.6)
[2018-05-30 07:31] LABS: Calcium 9.3 mg/dL (8.4-10.2)
[2018-05-30 07:57] LABS: Potassium 4.5 mmol/L (3.5-5.1)
[2018-05-30] MEDS: LOSARTAN 50 MG TAB PO SCH (10:11)
[2018-05-30] MEDS: APIXABAN 5 MG TAB PO SCH (10:11)
[2018-05-30] MEDS: ASPIRIN 81 MG PO SCH (10:11)
[2018-05-30 10:27] VITALS: RESP 18
--- NOTE | 2018-05-30 10:44 | P.PN ---
Subjective Patient is doing well No chest discomfort dizziness lightheadedness or palpitations Afebrile 97.6F, pulse rate in the 80s, blood pressure 125/85 mmHg Breath sounds are clear no rhonchi no crackles Heart sounds are normal no murmurs or gallops. Abdomen soft Extremity is warm Impression Paroxysmal atrial fibrillation, symptomatic currently on flecainide 100 mg twice daily PVCs, symptomatic, intermittent Plan Exercise stress echo on flecainide and of this is normal then we will proceed with pill in the pocket technique with flecainide will continue antihypertensive therapy including losartan and Cardizem If this is normal and is no evidence for QRS widening on flecainide and the stress echo portion is normal then we will stop on flecainide and use it only on a when necessary basis 100 mg as and when she has atrial fibrillation lasting greater than at least 20 minutes I have advised her not to take it for skipped beats/PVCs She should continue losartan and Cardizem Low salt diet weight reduction Objective - Vital Signs Vital signs: Vital Signs Temp 97.6 F 05/30/18 08:00 Pulse 88 05/30/18 08:00 Resp 18 05/30/18 08:00 BP 125/85 05/30/18 08:00 Pulse Ox 97 05/30/18 08:00 Intake & Output 05/29/18 05/30/18 05/30/18 18:59 06:59 18:59 Intake Total 720 400 240 Balance 720 400 240 Weight 131 kg Intake: Oral 720 400 240 Other: Voiding Method Toilet # Voids 2 2 - Labs CBC & Chem 7: 05/30/18 06:56 05/30/18 06:56 Labs: Abnormal Lab Results - Last 24 Hours (Table) 05/30/18 Range/Units 06:56 Chloride 109 H (98-107) mmol/L Carbon Dioxide 21 L (22-30) mmol/L BUN 19 H (7-17) mg/dL Glucose 159 H (74-99) mg/dL
--- NOTE | 2018-05-30 11:12 | CDI ---
Documentation Clarification Form Date: 05/30/2018 11:00:06 AM From: Hailee RODRIGUEZ,RN,CCDS Email: [email or web address] Admit Date: 05/27/2018 3:23:00 PM Patient Name: Patricia Mistry Visit Number: [id number] Discharge Date: ATTENTION: The Clinical Documentation Specialists (CDI) and [facility] Coding Staff appreciate your assistance in clarifying documentation. Please respond to the clarification below the line at the bottom and electronically sign. The CDI & [facility] Coding staff will review the response and follow-up if needed. Please note: Queries are made part of the Legal Health Record. If you have any questions, please contact the author of this message via ITS. Dr. Marie Please render your opinion on the clinical significance, if any, of BMI 45.2 History/Risk Factors: Afib, HTN,SABINA on cpap, presenting with palpitations and Chest pressure.ED notes PMH of overweight Clinical Indicators: VTE risk score notes obesity as risk factor .ED notes Patients weight is 131Kgs Patients height is 5 ft 7 in Calculated BMI is 45.2 Treatments: Heart Healthy Diet. PN 05/30/2018 note low salt diet planned weight reduction In order to capture the severity of condition associated with patient BMI of 45.2 a clinical diagnosis needs to be documented by the physician. Please clarify: Overweight Obesity, Class 1 Obesity, Class 2 Extreme (Morbid) (severe) obesity Other, please specify ____ Unable to determine NIH Classification for BMI: Overweight BMI 2529.9 Obesity (Class 1) BMI 3034.9 Obesity (Class 2) BMI 3539.9 Extreme (Morbid) (severe) obesity BMI =40 (Last Revision: August 2017) Morbid obesity with BMI of 45. MTDD
[2018-05-30 12:30] VITALS: BP 127/83; PULSE 77; TEMP 97.9
--- NOTE | 2018-05-30 14:03 | ECHOS ---
STRESS ECHOCARDIOGRAM INDICATIONS: Chest pain. MEDICATIONS: Ibuprofen. BASELINE HEART RATE: 84 BASELINE BLOOD PRESSURE: 151/62 MAXIMUM HEART RATE: 147 MAXIMUM BLOOD PRESSURE: 216/116 85% MPHR: 142 100% MPHR: 167 METS: 6.9 MAXIMUM STAGE REACHED: I TOTAL EXERCISE TIME: 5:44 CLINICAL INFORMATION: Patient was exercised for a total period of 5 minutes. Peak heart rate of 147 was achieved. Maximum blood pressure of 216/116 was noted. The resting EKG shows normal sinus rhythm with normal NC interval and QRS duration and normal ST-T waves. No ST- segment depression suggestive of ischemia is noted. No dysrhythmias are noted. FINAL IMPRESSION: The baseline echocardiographic images reveals normal left ventricular chamber size with normal left ventricular systolic function in the immediate postexercise. Normal increase in the wall thickness and contractility is noted. This stress echocardiographic study is negative for stress-induced ischemia. EKG portion of the stress test is not suggestive of ischemia. No dysrhythmias are noted. MMODL / IJN: [id number] /
--- NOTE | 2018-05-30 14:11 | P.DS ---
Providers Date of admission: 05/27/18 15:23 Expected date of discharge: 05/30/18 Attending physician: Kenroy Marie Consults: 05/26/18 16:30 Consult Physician Routine Consulting Provider: Shankar Pickens Consult Reason/Comments: palpitations, chest pain Do you want consulting provider notified?: Yes Primary care physician: [facility] Course: This is a 52-year-old female with a past medical history of atrial fibrillation, hypertension, obstructive sleep apnea. Who presented yesterday afternoon to the emergency department complaining of palpitations for the last 6 days and today chest pressure. Patient states that the chest pressure and pain increased today. However she didn't feel any shortness of breath or diaphoresis at that time. Patient does report that she's had higher levels of stress and anxiety over the past week. Patient does take elquist on a daily basis and Cardizem to help control the A. fib. At this time patient is resting comfortably in bed without having any further episodes of palpitations or chest discomfort. She denies any nausea or vomiting or difficulty breathing. 05/28: Patient is entering the room without any difficulties. She is inpatient to start antiarrhythmic treatment. Patient is being seen by cardiology. She denies any chest pain or palpitations at this time. She had started on flecainide yesterday and is tolerating well. Patient will be having a stress test done on Monday with possible discharge at that time. Patient denies any nausea or vomiting. 05/29/18: Patient is sitting up in chair with family at the bedside. Patient has a maturing room without any difficulties. Patient did have some palpitations in the evening and some this morning however after her last dose of lacunae in the palpitations seem to have subsided. Patient is tolerating flecainide well without any difficulties. Patient did have some issues with constipation however she had a bowel movement today and feels much better. He is scheduled for a stress test tomorrow with possible discharge afterwards. 05/30: Patient underwent stress echocardiogram that did not reveal any evidence of ischemia while on flecainide. Dr. Sexton recommends flecainide 100 mg only when necessary for atrial fibrillation and continue losartan in the evening and Cardizem 120 mg daily in the morning, weight reduction, low-salt diet, minimize alcohol intake. Patient denies having any chest pain, shortness of breath or palpitations. Patient will be discharged home today in stable condition. Discharge diagnoses: 1. Chest pain secondary to palpitations/atrial fibrillation. 2. Palpitations. 3. Paroxysmal atrial fibrillation. 4. Hypertension. 5. Obstructive sleep apnea. Discharge plan: Home Impression and plan of care have been directed as dictated by the signing physician. Hollie Mccullough nurse practitioner acting as scribe for signing physician. Patient Condition at Discharge: Good Plan - Discharge Summary New Discharge Prescriptions: New Flecainide [Tambocor] 100 mg PO DAILY PRN #10 tablet PRN Reason: palpitations/afib Aspirin 81 mg PO DAILY chew Diltiazem HCl [Diltiazem 24Hr CD] 120 mg PO DAILY #1 cap Continue Losartan [Cozaar] 50 mg PO QAM Apixaban [Eliquis] 5 mg PO QAM Magnesium 200 - 400 mg PO ONCE Discontinued Diltiazem HCl [Cartia Xt] 120 mg PO DAILY Discharge Medication List Apixaban [Eliquis] 5 mg PO QAM 07/24/17 [History] Losartan [Cozaar] 50 mg PO QAM 07/24/17 [History] Magnesium 200 - 400 mg PO ONCE 05/26/18 [History] Aspirin 81 mg PO DAILY chew 05/30/18 [Rx] Diltiazem HCl [Diltiazem 24Hr CD] 120 mg PO DAILY #1 cap 05/30/18 [Rx] Flecainide [Tambocor] 100 mg PO DAILY PRN #10 tablet 05/30/18 [Rx] Follow up Appointment(s)/Referral(s): Tremaine Johnston MD [STAFF PHYSICIAN] - 6 Weeks (Follow-up with Dr. Torres in 4-6 weeks I will make her appointment Use flecainide only on a when necessary basis Needs anticoagulation for stroke prevention Continue losartan and Cardizem) Ulises Pérez MD [Primary Care Provider] - 06/06/18 1:00 pm (Monday) Discharge Disposition: HOME SELF-CARE
[2018-05-30 21:27] LABS: Hemoglobin A1C 5.6 % (4.0-6.0)
--- NOTE | 2018-06-05 08:36 | CDI ---
Documentation Clarification Form Date: 05/30/2018 11:00:00 AM From: Hailee Lisa Email: [email or web address] Admit Date: 05/27/2018 3:23:00 PM Patient Name: Patricia Mistry Visit Number: [id number] Discharge Date: 05/30/2018 3:17:00 PM ATTENTION: The Clinical Documentation Specialists (CDI) and [facility] Coding Staff appreciate your assistance in clarifying documentation. Please respond to the clarification below the line at the bottom and electronically sign. The CDI & [facility] Coding staff will review the response and follow-up if needed. Please note: Queries are made part of the Legal Health Record. If you have any questions, please contact the author of this message via ITS. Dr. Marie Please render your opinion on the clicnial significance, if any, of BMI 45.2 History/Risk Factors: Afib, HTN,SABINA on cpap, persenting with palpitaitons and Chest pressire.ED notes PMH of overweight Clinical Indicators: VTE risk score ntoes obetiy as risk factor . Patients weight is 131Kgs Patients height is 5 ft 7 in Calculated BMI is 45.2 Treatments: Heart Healthy Diet. PN 05/30/2018 note low salt diet planned weight reduction In order to capture the severity of condition associated with patient BMI of 45.2 a clinical diagnosis needs to be documented by the physician. Please clarify: Overweight Obesity, Class 1 Obesity, Class 2 Extreme (Morbid) (severe) obesity Other, please specify ____ Unable to determine NIH Classification for BMI: Overweight BMI 2529.9 Obesity (Class 1) BMI 3034.9 Obesity (Class 2) BMI 3539.9 Extreme (Morbid) (severe) obesity BMI =40 (Last Revision: August 2017) MTDD
== END 2018-05-30 15:17 | disposition home or self-care (01) | DRG 309 ==
LOC: EC 13:21 → 1SOBS 16:31 → OBSVTOIN 05-27 15:23 → 3SCARD 05-27 16:46
PROVIDERS: ADMIT Internal Medicine; ATTEND Internal Medicine
DX: I48.0 Paroxysmal atrial fibrillation (principal); Z68.42 Body mass index [BMI] 45.0-49.9, adult; F32.9 Major depressive disorder, single episode, unspecified; F41.9 Anxiety disorder, unspecified; G47.33 Obstructive sleep apnea (adult) (pediatric); I10 Essential (primary) hypertension; I49.1 Atrial premature depolarization; I49.3 Ventricular premature depolarization; Z79.01 Long term (current) use of anticoagulants; E66.01 Morbid (severe) obesity due to excess calories; Z90.710 Acquired absence of both cervix and uterus; Z79.899 Other long term (current) drug therapy; Z99.89 Dependence on other enabling machines and devices; Z90.49 Acquired absence of other specified parts of digestive tract
CPT/HCPCS: 36415; 71046; 80048; 80053; 80061; 81001; 82550; 82553; 83036; 83735; 84443; 84484; 85025; 85610; 85730; 93005; 93306; 93351; 96361; 96374; 99285

== ENCOUNTER 2018-08-15 07:22 | Day surgery (SDC) | payer BC ==
[2018-08-10 14:30] VITALS: BMI 43.8
[~2018-08-15 07:22] MED LIST: LACTATED RINGERS 1,000 ML IV SCH
[2018-08-15 07:40] VITALS: TEMP 98
[2018-08-15] MEDS ORDERED: PROPOFOL 10 MG/ML 20 ML VIAL IV ONE (07:58)
[2018-08-15] MEDS ORDERED: LIDOCAINE 1% INJ 10MG/ML (20 ML MDV) ONE (07:58)
--- NOTE | 2018-08-15 08:32 | P.GSHP ---
History of Present Illness H&P Date: 08/15/18 Chief Complaint: Colon cancer screening Patient here today for colonoscopy. She has not had one previously. No bowel related complaints. No family history of colon cancer. Past Medical History Past Medical History: Atrial Fibrillation, Hypertension, Sleep Apnea/CPAP/BIPAP Additional Past Medical History / Comment(s): pt wears bipap HS History of Any Multi-Drug Resistant Organisms: None Reported Past Surgical History: Cholecystectomy, Hernia Repair, Hysterectomy, Uterine Ablation Additional Past Surgical History / Comment(s): UTERINE ABLATION Past Anesthesia/Blood Transfusion Reactions: No Reported Reaction Additional Past Anesthesia/Blood Transfusion Reaction / Comment(s): pt does not recieve blood transfusion Smoking Status: Never smoker - Past Family History Mother Family Medical History: Deep Vein Thrombosis (DVT) Father Family Medical History: AFIB, Cancer Additional Family Medical History / Comment(s): PROSTATE Brother(s) Family Medical History: No Reported History Son(s) Family Medical History: No Reported History Medications and Allergies Home Medications Medication Instructions Recorded Confirmed Type Apixaban [Eliquis] 5 mg PO QAM 07/24/17 08/10/18 History Losartan [Cozaar] 50 mg PO 1500 07/24/17 08/15/18 History Magnesium 200 mg PO Q48H 05/26/18 08/15/18 History Diltiazem HCl [Cartia Xt] 180 mg PO DAILY 06/18/18 08/15/18 History Allergies Allergy/AdvReac Type Severity Reaction Status Date / Time No Known Allergies Allergy Verified 08/15/18 07:30 Surgical - Exam Vital Signs Temp Pulse Resp BP Pulse Ox 98.0 F 88 17 146/77 96 08/15/18 07:38 08/15/18 07:38 08/15/18 07:38 08/15/18 07:38 08/15/18 07:38 Physical exam: General: Well-developed, well-nourished HEENT: Normocephalic, sclerae nonicteric Abdomen: Nontender, nondistended Extremities: No edema Neuro: Alert and oriented Assessment and Plan (1) Colon cancer screening Narrative/Plan: Will proceed with colonoscopy at this time Current Visit: Yes Status: Acute Code(s): Z12.11 - ENCOUNTER FOR SCREENING FOR MALIGNANT NEOPLASM OF COLON SNOMED Code(s): 628286263
--- NOTE | 2018-08-15 08:33 | P.PCN ---
Date of Procedure: 08/15/18 Procedure(s) Performed: PREOPERATIVE DIAGNOSIS: Colon cancer screening POSTOPERATIVE DIAGNOSIS: Normal exam PROCEDURE: Colonoscopy ANESTHESIA: MAC SURGEON: Ryan Martinez M.D. SPECIMENS: None ENDOSCOPIC PROCEDURE: The patient was placed on the endoscopy table in the left decubitus position. The Olympus colonoscope was inserted into the anus and passed under direct visualization to the base of the cecum. The appendiceal orifice was visualized. From that point the scope was slowly withdrawn inspecti ng all surfaces carefully. There were no neoplastic inflammatory or polypoid lesions throughout the cecum, ascending, transverse, descending, sigmoid and rectum. There was no visible diverticulosis noted. Digital rectal examination was normal. The patient was taken to the recovery room in stable condition per anesthesia guidelines. RECOMMENDATIONS: Increase fiber. Follow-up colonoscopy 10 years.
[2018-08-15 08:39] VITALS: RESP 16
[2018-08-15 09:01] VITALS: BP 105/69; PULSE 67
== END 2018-08-15 09:15 | disposition home or self-care (01) ==
LOC: ORWHC2ENDO 07:22
PROVIDERS: ATTEND Surgery
DX: Z12.11 Encounter for screening for malignant neoplasm of colon (principal); I48.91 Unspecified atrial fibrillation; I10 Essential (primary) hypertension; G47.33 Obstructive sleep apnea (adult) (pediatric); Z99.89 Dependence on other enabling machines and devices; Z90.710 Acquired absence of both cervix and uterus; Z80.42 Family history of malignant neoplasm of prostate; Z79.01 Long term (current) use of anticoagulants; Z79.899 Other long term (current) drug therapy
CPT/HCPCS: J2001; J2704; G0121

== ENCOUNTER 2020-02-07 01:15 | Emergency (ER) | payer BC ==
[2020-02-07 01:21] VITALS: TEMP 98.1
[2020-02-07] MEDS ORDERED: SODIUM CHLORIDE 0.9% 500 ML 500 ML IV STA (01:47)
--- NOTE | 2020-02-07 01:54 | ED ---
Seizure HPI - General Chief Complaint: Seizure Stated Complaint: poss seizure Time Seen by Provider: 02/07/20 01:27 Source: patient, EMS Mode of arrival: EMS Limitations: no limitations - History of Present Illness Initial Comments: This patient is a 54-year-old woman who is brought to have evaluation for suspected seizure. The patient had been sleeping when her noticed a change in her breathing. He describes it as strange gurgling sound. He did go and wake there son who is a nurse, and when he checked the patient they were not able to arouse her. Over the course of the following 10 minutes she did become progressively more arousable and then became alert. The patient does not have memory of the episode, up until the time she remembers being in ambulance being transported here. Patient states that she feels nearly back at her baseline stating that she does feel like her heart is occasionally fluttering. Patient denies any pain or dyspnea. No history of previous seizure activity. The patient does have history of sleep apnea and wears a BiPAP. The episode did occur while she was asleep. She states that she had felt normal throughout course yesterday up until going to sleep. MD Complaint: seizure -: minutes(s) Description of Episode: post-event confusion Witnessed: yes - by bystander Trauma: No Seizure History: none Place: home Possible Precipitating Event: none Associated Symptoms: denies other symptoms Treatments Prior to Arrival: none - Related Data Home Medications Medication Instructions Recorded Confirmed Apixaban [Eliquis] 5 mg PO QAM 07/24/17 08/10/18 Losartan [Cozaar] 50 mg PO 1500 07/24/17 08/15/18 Magnesium 200 mg PO Q48H 05/26/18 08/15/18 Diltiazem HCl [Cartia Xt] 180 mg PO DAILY 06/18/18 08/15/18 Allergies Allergy/AdvReac Type Severity Reaction Status Date / Time No Known Allergies Allergy Verified 08/15/18 07:30 Review of Systems ROS Statement: Those systems with pertinent positive or pertinent negative responses have been documented in the HPI. ROS Other: All systems not noted in ROS Statement are negative. Constitutional: Denies: fever, chills Eyes: Denies: vision change ENT: Denies: congestion Respiratory: Denies: cough, dyspnea Cardiovascular: Reports: as per HPI, palpitations. Denies: chest pain, orthopnea Gastrointestinal: Denies: abdominal pain, vomiting, diarrhea, melena, hematochezia Genitourinary: Denies: dysuria, hematuria Musculoskeletal: Denies: back pain Skin: Denies: rash Neurological: Denies: headache, weakness, numbness, vertigo Past Medical History Past Medical History: Atrial Fibrillation, Hypertension, Sleep Apnea/CPAP/BIPAP Additional Past Medical History / Comment(s): pt wears bipap HS History of Any Multi-Drug Resistant Organisms: None Reported Past Surgical History: Cholecystectomy, Hernia Repair, Hysterectomy, Uterine Ablation Additional Past Surgical History / Comment(s): UTERINE ABLATION Past Anesthesia/Blood Transfusion Reactions: No Reported Reaction Additional Past Anesthesia/Blood Transfusion Reaction / Comment(s): pt does not recieve blood transfusion Past Psychological History: Depression Smoking Status: Never smoker Past Alcohol Use History: Rare Past Drug Use History: None Reported - Past Family History Mother Family Medical History: Deep Vein Thrombosis (DVT) Father Family Medical History: AFIB, Cancer Additional Family Medical History / Comment(s): PROSTATE Brother(s) Family Medical History: No Reported History Son(s) Family Medical History: No Reported History General Exam Limitations: no limitations General appearance: alert, in no apparent distress Head exam: Present: atraumatic, normocephalic Eye exam: Present: normal appearance, PERRL, EOMI. Absent: scleral icterus, conjunctival injection, nystagmus ENT exam: Present: normal oropharynx Neck exam: Present: normal inspection, full ROM Respiratory exam: Present: normal lung sounds bilaterally. Absent: respiratory distress, wheezes, rales, rhonchi, stridor Cardiovascular Exam: Present: regular rate, normal rhythm, normal heart sounds. Absent: systolic murmur, diastolic murmur, rubs, gallop GI/Abdominal exam: Present: soft. Absent: distended, tenderness, guarding, rebound, rigid, mass Extremities exam: Present: normal inspection, normal capillary refill. Absent: pedal edema, calf tenderness Back exam: Present: normal inspection. Absent: CVA tenderness (R), CVA tenderness (L) Neurological exam: Present: alert, oriented X3, CN II-XII intact. Absent: motor sensory deficit Skin exam: Present: warm, dry, intact, normal color. Absent: rash Course Vital Signs 02/07/20 01:16 Temperature 98.1 F Pulse Rate 117 H Respiratory 18 Rate Blood Pressure 178/99 O2 Sat by Pulse 97 Oximetry Medical Decision Making - Lab Data Result diagrams: 02/07/20 02:00 02/07/20 02:00 Lab Results 02/07/20 02/07/20 Range/Units 02:00 02:00 WBC 10.7 H (3.8-10.6) k/uL RBC 5.05 (3.80-5.40) m/uL Hgb 14.3 (11.4-16.0) gm/dL Hct 43.9 (34.0-46.0) % MCV 87.0 (80.0-100.0) fL MCH 28.3 (25.0-35.0) pg MCHC 32.5 (31.0-37.0) g/dL RDW 13.8 (11.5-15.5) % Plt Count 175 (150-450) k/uL Neutrophils % 76 % Lymphocytes % 13 % Monocytes % 7 % Eosinophils % 3 % Basophils % 1 % Neutrophils # 8.1 H (1.3-7.7) k/uL Lymphocytes # 1.4 (1.0-4.8) k/uL Monocytes # 0.7 (0-1.0) k/uL Eosinophils # 0.3 (0-0.7) k/uL Basophils # 0.1 (0-0.2) k/uL Sodium 137 (137-145) mmol/L Potassium 4.1 (3.5-5.1) mmol/L Chloride 108 H (98-107) mmol/L Carbon Dioxide 21 L (22-30) mmol/L Anion Gap 8 mmol/L BUN 16 (7-17) mg/dL Creatinine 0.87 (0.52-1.04) mg/dL Est GFR (CKD-EPI)AfAm 87 (>60 ml/min/1.73 sqM) Est GFR (CKD-EPI)NonAf 75 (>60 ml/min/1.73 sqM) Glucose 147 H (74-99) mg/dL Calcium 9.0 (8.4-10.2) mg/dL Total Bilirubin 0.6 (0.2-1.3) mg/dL AST 29 (14-36) U/L ALT 19 (4-34) U/L Alkaline Phosphatase 92 (38-126) U/L Total Protein 6.2 L (6.3-8.2) g/dL Albumin 3.8 (3.5-5.0) g/dL - EKG Data -: EKG Interpreted by Me EKG shows normal: sinus rhythm (With PVCs), axis (Normal), intervals (Normal), QRS complexes, ST-T waves (Normal) Rate: tachycardia (Rate 101 bpm) Disposition Clinical Impression: New onset seizure Disposition: HOME SELF-CARE Condition: Good Instructions (If sedation given, give patient instructions): New-Onset Seizure in Adults (ED) Is patient prescribed a controlled substance at d/c from ED?: No Referrals: Ulises Pérez MD [REFERRING] - 1-2 days Dayan Mireles MD [REFERRING] - 1-2 days
[2020-02-07 02:19] LABS: Basophils # (A) 0.1 k/uL (0-0.2); Basophils % (A) 1 %; Eosinophils # (A) 0.3 k/uL (0-0.7); Eosinophils % (A) 3 %; HCT 43.9 % (34.0-46.0); HGB 14.3 gm/dL (11.4-16.0); Lymphocytes # (A) 1.4 k/uL (1.0-4.8); Lymphocytes % (A) 13 %; MCH 28.3 pg (25.0-35.0); MCHC 32.5 g/dL (31.0-37.0); Mean Platelet Volume 7.8; Monocytes # (A) 0.7 k/uL (0-1.0); Monocytes % (A) 7 %; Neutrophils # (A) 8.1 k/uL (1.3-7.7); Neutrophils % (A) 76 %; Platelet Count 175 k/uL (150-450); RBC 5.05 m/uL (3.80-5.40); RDW 13.8 % (11.5-15.5); WBC 10.7 k/uL (3.8-10.6)
[2020-02-07 02:22] LABS: Albumin 3.8 g/dL (3.5-5.0); Total Bilirubin 0.6 mg/dL (0.2-1.3); Total Protein 6.2 g/dL (6.3-8.2)
--- NOTE | 2020-02-07 02:26 | CT ---
EXAMINATION TYPE: CT brain wo con DATE OF EXAM: 02/07/2020 COMPARISON: None HISTORY: seizure CT DLP: 1268.4 mGycm Automated exposure control for dose reduction was used. Ventricles have normal size. There is no mass effect nor midline shift. There is no sign of intracran ial hemorrhage. Calvarium is intact. There is no evidence of cerebral edema. IMPRESSION: Negative unenhanced head CT scan.
[2020-02-07 02:28] LABS: Potassium 4.1 mmol/L (3.5-5.1)
[2020-02-07 03:26] VITALS: BP 151/90; PULSE 92; RESP 16
== END 2020-02-07 03:00 | disposition home or self-care (01) ==
LOC: EC 01:15
DX: R56.9 Unspecified convulsions (principal); I48.91 Unspecified atrial fibrillation; I10 Essential (primary) hypertension; G47.30 Sleep apnea, unspecified; Z79.01 Long term (current) use of anticoagulants; Z79.899 Other long term (current) drug therapy; Z99.89 Dependence on other enabling machines and devices
CPT/HCPCS: 36415; 70450; 80053; 85025; 93005; 96360; 99285

== ENCOUNTER 2020-05-19 11:42 | Emergency (ER) | payer BC ==
[2020-05-19 11:52] VITALS: RESP 18
--- NOTE | 2020-05-19 12:12 | ED ---
Seizure HPI - General Chief Complaint: Seizure Stated Complaint: Seizure Time Seen by Provider: 05/19/20 11:54 Source: patient Mode of arrival: wheelchair Limitations: no limitations - History of Present Illness Initial Comments: Patient is a 54-year-old female presenting to the emergency Department with complaints of having a seizure about 2 hours prior to arrival. Patient states she was unable to call with some friends when they noticed her slumped over in her chair and relates she may be having a seizure. Patient states the next thing she remembers is EMS in her house. She states at this time she has no specific complaints, she states she feels tired. She denies any pain, no chest pain or shortness of breath, no recent fever or chills. She denies any abdominal pain, no nausea or vomiting. She denies any new recent medications. She states her last seizure was in January, she did have an initial appointment with a neurologist in [place], she has not followed up with them since. She is not on any medication for these. Patient states the last time this happened she was under a lot of stress and she states again today she is again under a lot more stress than usual. She has no further complaints at this time. Upon arrival to the ER, she was slightly tach at 114, rest of vitals were normal. - Related Data Home Medications Medication Instructions Recorded Confirmed Apixaban [Eliquis] 2.5 mg PO QAM 07/24/17 05/19/20 Losartan [Cozaar] 50 mg PO DAILY@1500 07/24/17 05/19/20 Magnesium 200 mg PO HS 05/26/18 05/19/20 Diltiazem HCl [Cartia Xt] 180 mg PO DAILY 05/19/20 05/19/20 Allergies Allergy/AdvReac Type Severity Reaction Status Date / Time No Known Allergies Allergy Verified 05/19/20 12:41 Review of Systems ROS Statement: Those systems with pertinent positive or pertinent negative responses have been documented in the HPI. ROS Other: All systems not noted in ROS Statement are negative. Past Medical History Past Medical History: Atrial Fibrillation, Hypertension, Seizure Disorder, Sleep Apnea/CPAP/BIPAP Additional Past Medical History / Comment(s): pt wears bipap HS History of Any Multi-Drug Resistant Organisms: None Reported Past Surgical History: Cholecystectomy, Hernia Repair, Hysterectomy, Uterine Ablation Additional Past Surgical History / Comment(s): UTERINE ABLATION Past Anesthesia/Blood Transfusion Reactions: No Reported Reaction Additional Past Anesthesia/Blood Transfusion Reaction / Comment(s): pt does not recieve blood transfusion Past Psychological History: Depression Smoking Status: Never smoker Past Alcohol Use History: Rare Past Drug Use History: None Reported - Past Family History Mother Family Medical History: Deep Vein Thrombosis (DVT) Father Family Medical History: AFIB, Cancer Additional Family Medical History / Comment(s): PROSTATE Brother(s) Family Medical History: No Reported History Son(s) Family Medical History: No Reported History General Exam - General Exam Comments Initial Comments: GENERAL: Patient is well-developed and well-nourished. Patient is nontoxic and in no acu te distress. HEAD: Atraumatic, normocephalic. EYES: Pupils equal round and reactive to light, extraocular movements intact, sclera anicteric, conjunctiva are normal. Eyelids were unremarkable. ENT: TMs normal, nares patent, oropharynx clear without exudates. Moist mucous membranes. NECK: Normal range of motion, supple without lymphadenopathy or JVD. LUNGS: Unlabored respirations. Breath sounds clear to auscultation bilaterally and equal. No wheezes rales or rhonchi. HEART: Regular rate and rhythm without murmurs, rubs or gallops. ABDOMEN: Soft, nontender, normoactive bowel sounds. No guarding, no rebound. No masses appreciated. : Deferred MUSCULOSKELETAL: Normal extremities with adequate strength and normal range of motion, no pitting or edema. No clubbing or cyanosis. NEUROLOGICAL: Patient is alert and oriented x 3. Motor and sensory are also intact. Cranial nerves II through XII grossly intact. Symmetrical smile. Normal speech, normal gait. PSYCH: Normal mood, normal affect. SKIN: Warm, Dry, normal turgor, no rashes or lesions noted. Limitations: no limitations Course Vital Signs 05/19/20 11:49 Temperature 98.6 F Pulse Rate 114 H Respiratory 18 Rate Blood Pressure 152/82 O2 Sat by Pulse 96 Oximetry Medical Decision Making - Medical Decision Making Patient is a 54-year-old female here with having a seizure 2 hours prior to arrival. Her vital signs are stable upon arrival, slightly tachycardia. She is no specific complaints at this time other than feeling fatigued. Her exam is unremarkable, her EKG is stable, no acute process. Labs are stable, no acute process at this time, urine shows no evidence of infection. Patient had a brain CT in January, this was reviewed was normal. Patient has been resting completely ER. Discussed these findings with the patient. She needs to follow-up with her neurologist. She is in agreement with this. She has not been driving and will continue to follow that precaution. Patient is stable for discharge. Return parameters were discussed with the patient she verbalized understanding. Case discussed Dr. Sumner. - Lab Data Result diagrams: 05/19/20 12:05/19/20 12: Lab Results 05/19/20 05/19/20 05/19/20 Range/Units 12: 12: 12: WBC 14.2 H (3.8-10.6) k/uL RBC 5.24 (3.80-5.40) m/uL Hgb 15.8 (11.4-16.0) gm/dL Hct 46.2 H (34.0-46.0) % MCV 88.2 (80.0-100.0) fL MCH 30.2 (25.0-35.0) pg MCHC 34.2 (31.0-37.0) g/dL RDW 13.0 (11.5-15.5) % Plt Count 213 (150-450) k/uL MPV 7.0 Neutrophils % 78 % Lymphocytes % 12 % Monocytes % 5 % Eosinophils % 4 % Basophils % 1 % Neutrophils # 11.1 H (1.3-7.7) k/uL Lymphocytes # 1.6 (1.0-4.8) k/uL Monocytes # 0.7 (0-1.0) k/uL Eosinophils # 0.6 (0-0.7) k/uL Basophils # 0.1 (0-0.2) k/uL Sodium 138 (137-145) mmol/L Potassium 4.0 (3.5-5.1) mmol/L Chloride 109 H (98-107) mmol/L Carbon Dioxide 20 L (22-30) mmol/L Anion Gap 9 mmol/L BUN 15 (7-17) mg/dL Creatinine 0.97 (0.52-1.04) mg/dL Est GFR (CKD-EPI)AfAm 76 (>60 ml/min/1.73 sqM) Est GFR (CKD-EPI)NonAf 66 (>60 ml/min/1.73 sqM) Glucose 125 H (74-99) mg/dL Calcium 9.4 (8.4-10.2) mg/dL Total Bilirubin 0.6 (0.2-1.3) mg/dL AST 26 (14-36) U/L ALT 25 (4-34) U/L Alkaline Phosphatase 140 H (38-126) U/L Total Protein 7.1 (6.3-8.2) g/dL Albumin 4.3 (3.5-5.0) g/dL Urine Color Yellow Urine Appearance Cloudy H (Clear) Urine pH 6.0 (5.0-8.0) Ur Specific Gilbert 1.017 (1.001-1.035) Urine Protein 2+ H (Negative) Urine Glucose (UA) Negative (Negative) Urine Ketones Negative (Negative) Urine Blood Negative (Negative) Urine Nitrite Negative (Negative) Urine Bilirubin Negative (Negative) Urine Urobilinogen <2.0 (<2.0) mg/dL Ur Leukocyte Esterase Trace H (Negative) Urine RBC 3 (0-5) /hpf Urine WBC 10 H (0-5) /hpf Ur Squamous Epith Cells 12 H (0-4) /hpf Urine Bacteria Moderate H (None) /hpf Hyaline Casts 8 H (0-2) /lpf Urine Mucus Moderate H (None) /hpf Urine Opiates Screen Not Detected (NotDetected) Ur Oxycodone Screen Not Detected (NotDetected) Urine Methadone Screen Not Detected (NotDetected) Ur Propoxyphene Screen Not Detected (NotDetected) Ur Barbiturates Screen Not Detected (NotDetected) U Tricyclic Antidepress Not Detected (NotDetected) Ur Phencyclidine Scrn Not Detected (NotDetected) Ur Amphetamines Screen Not Detected (NotDetected) U Methamphetamines Scrn Not Detected (NotDetected) U Benzodiazepines Scrn Not Detected (NotDetected) Urine Cocaine Screen Not Detected (NotDetected) U Marijuana (THC) Screen Not Detected (NotDetected) Serum Alcohol <10 mg/dL - EKG Data EKG Comments: EKG reveals sinus tach with occasional PVCs, septal infarct age undetermined, no signs of acute process. Similar to previous EKG on 02/07/2020. Ventricular rate 112, [place] interval 152, QT 350. Disposition Clinical Impression: Seizure Disposition: HOME SELF-CARE Condition: Stable Instructions (If sedation given, give patient instructions): Recurrent Seizures in Adults (ED) Additional Instructions: Please return to the Emergency Department if symptoms worsen or any other concerns. Follow-up with your neurologist as discussed. Do not drive. Is patient prescribed a controlled substance at d/c from ED?: No Referrals: Martin Kinney MD [Primary Care Provider] - 1-2 days
[2020-05-19 12:37] LABS: Basophils # (A) 0.1 k/uL (0-0.2); Basophils % (A) 1 %; Eosinophils # (A) 0.6 k/uL (0-0.7); Eosinophils % (A) 4 %; HCT 46.2 % (34.0-46.0); HGB 15.8 gm/dL (11.4-16.0); Lymphocytes # (A) 1.6 k/uL (1.0-4.8); Lymphocytes % (A) 12 %; MCH 30.2 pg (25.0-35.0); MCHC 34.2 g/dL (31.0-37.0); MCV 88.2 fL (80.0-100.0); Monocytes # (A) 0.7 k/uL (0-1.0); Monocytes % (A) 5 %; Neutrophils # (A) 11.1 k/uL (1.3-7.7); Neutrophils % (A) 78 %; Platelet Count 213 k/uL (150-450); RBC 5.24 m/uL (3.80-5.40); WBC 14.2 k/uL (3.8-10.6)
[2020-05-19 12:47] LABS: ALT 25 U/L (4-34); AST 26 U/L (14-36); African American GFR (CKD) 76 (>60 ml/min/1.73 sqM); Albumin 4.3 g/dL (3.5-5.0); Alcohol <10 mg/dL; Alkaline Phosphatase 140 U/L (38-126); Anion Gap 9 mmol/L; Blood Urea Nitrogen 15 mg/dL (7-17); Calcium 9.4 mg/dL (8.4-10.2); Carbon Dioxide 20 mmol/L (22-30); Chloride 109 mmol/L (98-107); Glucose 125 mg/dL (74-99); Non-African American GFR(CKD) 66 (>60 ml/min/1.73 sqM); Sodium 138 mmol/L (137-145); Total Bilirubin 0.6 mg/dL (0.2-1.3); Total Protein 7.1 g/dL (6.3-8.2)
[2020-05-19 13:04] LABS: Appearance,Urine Cloudy (Clear); Bacteria,Urine Moderate /hpf; Bilirubin,Urine Negative (Negative); Blood,Urine Negative (Negative); Color,Urine Yellow; Glucose,Urine (UA) Negative (Negative); Hyaline Casts,Urine 8 /lpf (0-2); Ketones,Urine Negative (Negative); Leukocyte Esterase,Urine Trace (Negative); Mucus,Urine Moderate /hpf; Nitrite,Urine Negative (Negative); Protein,Urine 2+ (Negative); RBC,Urine 3 /hpf (0-5); Specific Gravity,Urine 1.017 (1.001-1.035); Squamous Epithelial Cell,Urine 12 /hpf (0-4); Urobilinogen,Urine <2.0 mg/dL (<2.0); WBC,Urine 10 /hpf (0-5)
[2020-05-19 13:23] LABS: Amphetamine Screen,Urine Not Detected (NotDetected); Barbiturate Screen,Urine Not Detected (NotDetected); Benzodiazepines Screen,Urine Not Detected (NotDetected); Cocaine Screen,Urine Not Detected (NotDetected); Methadone Screen, Urine Not Detected (NotDetected); Opiate Screen,Urine Not Detected (NotDetected); Oxycodone Screen, Urine Not Detected (NotDetected); Phencyclidine Screen,Urine Not Detected (NotDetected); Tricyclic Antidepressant,Urine Not Detected (NotDetected); Urn Cannabinoid Scrn Not Detected (NotDetected)
[2020-05-19 13:47] VITALS: BP 124/69; PULSE 79; TEMP 98.2
== END 2020-05-19 13:47 | disposition home or self-care (01) ==
LOC: EC 11:42
DX: G40.909 Epilepsy, unspecified, not intractable, without status epilepticus (principal); R53.83 Other fatigue; I48.91 Unspecified atrial fibrillation; I10 Essential (primary) hypertension; G47.30 Sleep apnea, unspecified; F32.9 Major depressive disorder, single episode, unspecified; Z99.89 Dependence on other enabling machines and devices; Z79.01 Long term (current) use of anticoagulants; Z79.899 Other long term (current) drug therapy
CPT/HCPCS: 36415; 80053; 80306; 80320; 81001; 85025; 93005; 99284

== ENCOUNTER → 2020-09-12 | Outpatient (CLI) | payer BC | END | disposition home or self-care (01) | LOC: RADMRIMAIN 08:42 | PROVIDERS: ATTEND Psychiatry & Neurology Neurology | DX: Z53.9 Procedure and treatment not carried out, unspecified reason (principal) ==

== ENCOUNTER 2022-11-02 14:45 | Emergency (ER) | payer BC ==
[2022-11-02 14:50] VITALS: RESP 18
[2022-11-02 14:55] VITALS: TEMP 98.4
[2022-11-02] MEDS ORDERED: levETIRAcetam IV 500 MG/5 ML VIAL IVP STA (15:58)
[2022-11-02] MEDS ORDERED: LORazepam 2 MG/ML INJ IV STA (15:58)
[2022-11-02] MEDS ORDERED: SODIUM CHLORIDE 0.9% 1,000 ML IV STA (15:58)
--- NOTE | 2022-11-02 16:05 | ED ---
Seizure HPI - General Chief Complaint: Seizure Stated Complaint: Seizure Time Seen by Provider: 11/02/22 15:15 Source: patient, RN notes reviewed, old records reviewed Mode of arrival: EMS Limitations: no limitations - History of Present Illness Initial Comments: This is a 56-year-old female to the emergency department for evaluation. Patient presents today for evaluation of with seizure history of seizures patient is a poor historian secondary to postictal state where history can be obtained by and EMS MD Complaint: seizure -: hour(s) -: second(s) Witnessed: no Seizure History: none Place: home Possible Precipitating Event: none Associated Symptoms: denies other symptoms - Related Data Home Medications Medication Instructions Recorded Confirmed Apixaban [Eliquis] 5 mg PO DAILY 07/24/17 11/02/22 Losartan [Cozaar] 50 mg PO DAILY@1400 07/24/17 11/02/22 Escitalopram [Lexapro] 10 mg PO HS 11/02/22 11/02/22 dilTIAZem HCL [dilTIAZem HCL 12Hr 60 mg PO DAILY 11/02/22 11/02/22 ER] Previous Rx's Medication Instructions Recorded levETIRAcetam [Keppra] 500 mg PO Q12HR #60 tab 11/02/22 Allergies Allergy/AdvReac Type Severity Reaction Status Date / Time No Known Allergies Allergy Verified 11/02/22 17:45 Review of Systems ROS Statement: Those systems with pertinent positive or pertinent negative responses have been documented in the HPI. ROS Other: All systems not noted in ROS Statement are negative. Past Medical History Past Medical History: Atrial Fibrillation, Hypertension, Seizure Disorder, Sleep Apnea/CPAP/BIPAP Additional Past Medical History / Comment(s): pt wears bipap HS History of Any Multi-Drug Resistant Organisms: None Reported Past Surgical History: Cholecystectomy, Hernia Repair, Hysterectomy, Uterine Ablation Additional Past Surgical History / Comment(s): UTERINE ABLATION Past Anesthesia/Blood Transfusion Reactions: No Reported Reaction Additional Past Anesthesia/Blood Transfusion Reaction / Comment(s): pt does not recieve blood transfusion Past Psychological History: Depression Smoking Status: Never smoker Past Alcohol Use History: Rare Past Drug Use History: None Reported - Past Family History Mother Family Medical History: Deep Vein Thrombosis (DVT) Father Family Medical History: AFIB, Cancer Additional Family Medical History / Comment(s): PROSTATE Brother(s) Family Medical History: No Reported History Son(s) Family Medical History: No Reported History General Exam Limitations: no limitations General appearance: alert, in no apparent distress, anxious Head exam: Present: atraumatic, normocephalic, normal inspection Eye exam: Present: normal appearance, PERRL, EOMI. Absent: scleral icterus, conjunctival injection, periorbital swelling ENT exam: Present: normal exam, mucous membranes moist Neck exam: Present: normal inspection. Absent: tenderness, meningismus, lymphadenopathy Respiratory exam: Present: normal lung sounds bilaterally. Absent: respiratory distress, wheezes, rales, rhonchi, stridor Cardiovascular Exam: Present: normal rhythm, tachycardia, normal heart sounds. Absent: systolic murmur, diastolic murmur, rubs, gallop, clicks GI/Abdominal exam: Present: soft, normal bowel sounds. Absent: distended, tenderness, guarding, rebound, rigid Extremities exam: Present: normal inspection, full ROM, normal capillary refill. Absent: tenderness, pedal edema, joint swelling, calf tenderness Back exam: Present: normal inspection Neurological exam: Present: alert, oriented X3, CN II-XII intact Psychiatric exam: Present: normal affect, normal mood Skin exam: Present: warm, dry, intact, normal color. Absent: rash Course Vital Signs 11/02/22 11/02/22 11/02/22 14:46 14:53 16:28 Temperature 98.4 F Pulse Rate 114 H 99 Respiratory 18 18 Rate Blood Pressure 201/96 154/80 O2 Sat by Pulse 96 95 Oximetry 11/02/22 18:04 Temperature Pulse Rate 98 Respiratory 18 Rate Blood Pressure 146/88 O2 Sat by Pulse 96 Oximetry - Reevaluation(s) Reevaluation #1: 11/02/22 23:27 Medical records reviewed Reevaluation #2: 11/02/22 23:27 Patient has no recurrent seizure here in the ER Reevaluation #3: 11/02/22 23:28 Patient informed results questions answered Reevaluation #4: 11/02/22 23:28 Was pt. sent in by a medical professional or institution? @ -no Did you speak to anyone other than the patient for history? @ -S patient's is at bedside who provides history well patient is postictal and confused Did you review nursing and triage notes? @ -agree Were old charts reviewed? @ -no Differential Diagnosis? @ -prior EKG interpreted by me (3pts min.)? @ -yes X-rays interpreted by me (1pt min.)? @ -no CT interpreted by me (1pt min.)? @ -no U/S interpreted by me (1pt. min.)? @ -no What testing was considered but not performed? (CT, X-rays, U/S, labs)? Why? @ -no What meds were considered but not given? Why? @ -no Did you discuss the management of the patient with other professionals? @ -no Did you reconcile home meds? @ -no Was smoking cessation discussed for >3mins.? @ -no Was critical care preformed (if so, how long)? @ -no Were there social determinants of health that impacted care today? How? (Homelessness, low income, unemployed, alcoholism, drug addiction, transportation, low edu. Level, literacy, decrease access to med. care, [facility], rehab)? @ -no Was there de-escalation of care discussed even if they declined? (Discuss DNR or withdrawal of care, Hospice)? @ -no What co-morbidities impacted this encounter? (DM, HTN, Smoking, COPD, CAD, Cancer, CVA, Hep., AIDS, mental health diagnosis, sleep apnea, morbid obesity)? @ -none Was patient admitted / discharged? @ -56 female to the emergency department with seizure, history of seizures, no seizure here in the ER and this is a recurrent seizure, patient will be started on Keppra if she currently takes no seizure medication, patient does not want to stay for further evaluation, patient does have outpatient neurologist appointment and can be discharged home Discharge Undiagnosed new problem with uncertain prognosis? @ -no Drug Therapy requiring intensive monitoring for toxicity (Heparin, Nitro, Insulin, Cardizem)? @ -no Were any procedures done? @ -no Diagnosis/symptom? @ -Recurrent seizure Acute, or Chronic, or Acute on Chronic? @ -Q Uncomplicated (without systemic symptoms) or Complicated (systemic symptoms)? @ -uncomplicated Side effects of treatment? @ -no Exacerbation, Progression, or Severe Exacerbation] @ -no Poses a threat to life or bodily function? @ -yes prolonged seizures and cerebral edema Reevaluation #5: 11/02/22 23:28 Differential Seizure: Recurrent seizure disorder, febrile seizure, alcohol withdrawal, stimulants, meningitis, encephalitis, intercranial hemorrhage, intracranial tumor, stroke, eclampsia, thyrotoxicosis, hypocalcemia, hyponatremia, hypernatremia, hypo magnesemia, psychogenic, this is not meant to be an all-inclusive list. Medical Decision Making - Medical Decision Making 56 female to the emergency department with seizure, history of seizures, no seizure here in the ER and this is a recurrent seizure, patient will be started on Keppra if she currently takes no seizure medication, patient does not want to stay for further evaluation, patient does have outpatient neurologist appo intment and can be discharged home - Lab Data Result diagrams: 11/02/22 16:27 11/02/22 16:27 Lab Results 11/02/22 11/02/22 11/02/22 Range/Units 16:27 16:27 16:27 WBC 15.9 H (3.8-10.6) k/uL RBC 5.10 (3.80-5.40) m/uL Hgb 14.8 (11.4-16.0) gm/dL Hct 44.1 (34.0-46.0) % MCV 86.6 (80.0-100.0) fL MCH 29.1 (25.0-35.0) pg MCHC 33.6 (31.0-37.0) g/dL RDW 13.6 (11.5-15.5) % Plt Count 229 (150-450) k/uL MPV 7.2 Neutrophils % 87 % Lymphocytes % 7 % Monocytes % 5 % Eosinophils % 1 % Basophils % 0 % Neutrophils # 13.8 H (1.3-7.7) k/uL Lymphocytes # 1.1 (1.0-4.8) k/uL Monocytes # 0.7 (0-1.0) k/uL Eosinophils # 0.1 (0-0.7) k/uL Basophils # 0.0 (0-0.2) k/uL Sodium 137 (137-145) mmol/L Potassium 4.2 (3.5-5.1) mmol/L Chloride 106 (98-107) mmol/L Carbon Dioxide 25 (22-30) mmol/L Anion Gap 6 mmol/L BUN 15 (7-17) mg/dL Creatinine 0.88 (0.52-1.04) mg/dL Est GFR (CKD-EPI)AfAm 85 (>60 ml/min/1.73 sqM) Est GFR (CKD-EPI)NonAf 74 (>60 ml/min/1.73 sqM) Glucose 115 H (74-99) mg/dL Estimated Ave Glu mg/dL mg/dL Hemoglobin A1c (<=6.0) % Calcium 8.8 (8.4-10.2) mg/dL Magnesium 2.0 (1.6-2.3) mg/dL Total Bilirubin 0.4 (0.2-1.3) mg/dL AST 29 (14-36) U/L ALT 23 (4-34) U/L Alkaline Phosphatase 136 H (38-126) U/L Total Protein 6.1 L (6.3-8.2) g/dL Albumin 3.7 (3.5-5.0) g/dL Triglycerides 219.00 H (0.00-149.00) mg/dL Cholesterol 196.00 (0.00-200.00) mg/dL LDL Cholesterol, Calc 111.0 (0.0-131.0) mg/dL VLDL Cholesterol, Calc 43.80 H (5.00-40.00) mg/dL HDL Cholesterol 41.20 (40.00-60.00) mg/dL Cholesterol/HDL Ratio 4.76 Ratio TSH 0.679 (0.465-4.680) mIU/L Salicylates <1.0 mg/dL Acetaminophen <10.0 ug/mL 11/02/22 Range/Units 16:27 WBC (3.8-10.6) k/uL RBC (3.80-5.40) m/uL Hgb (11.4-16.0) gm/dL Hct (34.0-46.0) % MCV (80.0-100.0) fL MCH (25.0-35.0) pg MCHC (31.0-37.0) g/dL RDW (11.5-15.5) % Plt Count (150-450) k/uL MPV Neutrophils % % Lymphocytes % % Monocytes % % Eosinophils % % Basophils % % Neutrophils # (1.3-7.7) k/uL Lymphocytes # (1.0-4.8) k/uL Monocytes # (0-1.0) k/uL Eosinophils # (0-0.7) k/uL Basophils # (0-0.2) k/uL Sodium (137-145) mmol/L Potassium (3.5-5.1) mmol/L Chloride (98-107) mmol/L Carbon Dioxide (22-30) mmol/L Anion Gap mmol/L BUN (7-17) mg/dL Creatinine (0.52-1.04) mg/dL Est GFR (CKD-EPI)AfAm (>60 ml/min/1.73 sqM) Est GFR (CKD-EPI)NonAf (>60 ml/min/1.73 sqM) Glucose (74-99) mg/dL Estimated Ave Glu mg/dL 126 mg/dL Hemoglobin A1c 6.0 (<=6.0) % Calcium (8.4-10.2) mg/dL Magnesium (1.6-2.3) mg/dL Total Bilirubin (0.2-1.3) mg/dL AST (14-36) U/L ALT (4-34) U/L Alkaline Phosphatase (38-126) U/L Total Protein (6.3-8.2) g/dL Albumin (3.5-5.0) g/dL Triglycerides (0.00-149.00) mg/dL Cholesterol (0.00-200.00) mg/dL LDL Cholesterol, Calc (0.0-131.0) mg/dL VLDL Cholesterol, Calc (5.00-40.00) mg/dL HDL Cholesterol (40.00-60.00) mg/dL Cholesterol/HDL Ratio Ratio TSH (0.465-4.680) mIU/L Salicylates mg/dL Acetaminophen ug/mL - EKG Data -: EKG Interpreted by Me (EKG sinus 100 CA 150 QRS O8 QTc 409) Disposition Clinical Impression: Generalized seizure, Status epilepticus Disposition: HOME SELF-CARE Instructions (If sedation given, give patient instructions): Seizure/Epilepsy Discharge Instructions & Follow-Up, Recurrent Seizures in Adults (ED) Prescriptions: levETIRAcetam [Keppra] 500 mg PO Q12HR #60 tab Is patient prescribed a controlled substance at d/c from ED?: No Referrals: Martin Kinney MD [Primary Care Provider] - 1-2 days Time of Disposition: 17:30
[2022-11-02 16:34] LABS: Basophils % (A) 0 %; Eosinophils # (A) 0.1 k/uL (0-0.7); Eosinophils % (A) 1 %; HCT 44.1 % (34.0-46.0); HGB 14.8 gm/dL (11.4-16.0); Lymphocytes # (A) 1.1 k/uL (1.0-4.8); Lymphocytes % (A) 7 %; MCH 29.1 pg (25.0-35.0); MCHC 33.6 g/dL (31.0-37.0); MCV 86.6 fL (80.0-100.0); Mean Platelet Volume 7.2; Monocytes # (A) 0.7 k/uL (0-1.0); Monocytes % (A) 5 %; Neutrophils # (A) 13.8 k/uL (1.3-7.7); Neutrophils % (A) 87 %; Platelet Count 229 k/uL (150-450); RDW 13.6 % (11.5-15.5); WBC 15.9 k/uL (3.8-10.6)
[2022-11-02 16:52] LABS: ALT 23 U/L (4-34); AST 29 U/L (14-36); Acetaminophen <10.0 ug/mL; African American GFR (CKD) 85 (>60 ml/min/1.73 sqM); Albumin 3.7 g/dL (3.5-5.0); Alkaline Phosphatase 136 U/L (38-126); Anion Gap 6 mmol/L; Blood Urea Nitrogen 15 mg/dL (7-17); Calcium 8.8 mg/dL (8.4-10.2); Carbon Dioxide 25 mmol/L (22-30); Chloride 106 mmol/L (98-107); Glucose 115 mg/dL (74-99); Non-African American GFR(CKD) 74 (>60 ml/min/1.73 sqM); Potassium 4.2 mmol/L (3.5-5.1); Salicylate <1.0 mg/dL; Sodium 137 mmol/L (137-145); Total Bilirubin 0.4 mg/dL (0.2-1.3); Total Protein 6.1 g/dL (6.3-8.2)
[2022-11-02 18:07] VITALS: BP 146/88; PULSE 98
[2022-11-04 23:01] LABS: Chol/HDL Ratio 4.76 Ratio
== END 2022-11-02 18:06 | disposition home or self-care (01) ==
LOC: EC 14:45
DX: G40.901 Epilepsy, unspecified, not intractable, with status epilepticus (principal); I10 Essential (primary) hypertension; I48.91 Unspecified atrial fibrillation; F32.A Depression, unspecified; G47.30 Sleep apnea, unspecified; Z79.01 Long term (current) use of anticoagulants; Z79.899 Other long term (current) drug therapy; Z90.49 Acquired absence of other specified parts of digestive tract
CPT/HCPCS: 36415; 93005; 80061; 80053; 83735; 84443; 85025; 80143; 83036; 80179; 99284; 96374; 96375; 96361 ×2; J2060; J1953